=== PATIENT | male | born 1995 | race Hispanic/Latino ===

== ENCOUNTER 2019-01-26 11:35 | Emergency (ER) | payer SELFPAY ==
--- NOTE | 2019-01-26 12:06 | EDPHYS ---
Physician Documentation [facility] Name: Macho Park Age: 23 yrs Sex: Male : 1995 Arrival Date: 01/26/2019 Time: 11:42 Bed 4 Private MD: ED Physician Jeff Abreu HPI: 01/26 11:51 This 23 yrs old Male presents to ER via EMS with complaints of dizziness. rn 11:51 The patient presents with generalized weakness, lightheadedness. Onset: The rn symptoms/episode began/occurred 2 week(s) ago. Context:. Modifying factors: The symptoms are alleviated by lying down, the symptoms are aggravated by standing up, changing position. Associated signs and symptoms: Pertinent negatives: abdominal pain, chest pain, confusion, diaphoresis, head injury, headache, near-syncope, numbness, seizure, shortness of breath, syncope, tingling, vomiting. Severity of symptoms: At their worst the symptoms were mild in the emergency department the symptoms are unchanged. The patient has experienced similar episodes in the past. Reports dizziness and lightheaded for 2-3 weeks, worse when changing position and standing, no focal neurological problem. Has been in [facility] for last 2 days and feels like made it worse. Also reports chronic abscesses and skin problems, nothing acute or acute changes, has been happening for years. Has seen multiple ERs for skin problem with bloodwork and ct of chronic masses, took abx and did nothing. Reports masses not growing or painful. Denies drug use or stimulant use. . Historical: - Allergies: 11:47 No Known Allergies; ca1 - Home Meds: 11:47 None [Active]; ca1 - PMHx: 11:47 None; ca1 - PSHx: 11:47 None; ca1 - Immunization history:: Adult Immunizations up to date. - Social history:: Smoking status: Patient uses tobacco products, smokes one-half pack cigarettes per day. - Ebola Screening: : Patient negative for fever greater than or equal to 101.5 degrees Fahrenheit, and additional compatible Ebola Virus Disease symptoms Patient denies exposure to infectious person Patient denies travel to an Ebola-affected area in the 21 days before illness onset No symptoms or risks identified at this time. - Family history:: not pertinent. - Hospitalizations: : No recent hospitalization is reported. ROS: 11:51 Constitutional: Negative for fever, chills, and weight loss, Eyes: Negative for injury, rn pain, redness, and discharge, Neck: Negative for injury, pain, and swelling, Cardiovascular: Negative for chest pain, and edema, Respiratory: Negative for shortness of breath, cough, wheezing, and pleuritic chest pain, Abdomen/GI: Negative for abdominal pain, nausea, vomiting, diarrhea, and constipation, MS/Extremity: Negative for injury and deformity, Skin: + chronic skin changes and rash Neuro: Negative for headache, weakness, numbness, tingling, and seizure. Exam: 11:51 Constitutional: Thin male, disheveled with strong body odor, no acute distress, rn appears anxious. Head/Face: Normocephalic, atraumatic. Eyes: Pupils equal round and reactive to light, extra-ocular motions intact. Lids and lashes normal. Conjunctiva and sclera are non-icteric and not injected. Cornea within normal limits. ENT: MMM, poor dentition Neck: Trachea midline, no thyromegaly or masses palpated, and no cervical lymphadenopathy. Supple, full range of motion without nuchal rigidity, or vertebral point tenderness. No Meningismus. Cardiovascular: Regular rate and rhythm. No pulse deficits. Respiratory: No increased work of breathing, no retractions or nasal flaring. Speaking full sentences. Skin: Warm, dry, + multiple nodular dermal growths on face/neck/back, no fluctuance, non-tender, + chronic scarring from previoius skin problems throughout. NO erythema or warmth. MS/ Extremity: Pulses equal, no cyanosis. Neurovascular intact. Full, normal range of motion. Equal circumference. Neuro: Awake and alert, GCS 15, oriented to person, place, time, and situation. Cranial nerves II-XII grossly intact. Motor strength 5/5 in all extremities. Sensory grossly intact. Cerebellar exam normal. 12:00 ECG was reviewed by the Attending Physician. rn Vital Signs: 11:47 BP 130 / 79; Pulse 76; Resp 16 S; Temp 97.4(O); Pulse Ox 100% on R/A; Weight 88.45 kg ca1 (R); Height 6 ft. 4 in. (193.04 cm) (R); Pain 0/10; 11:47 Body Mass Index 23.74 (88.45 kg, 193.04 cm) ca1 MDM: 11:44 Patient medically screened. rn 12:00 ED course: Glucose WNL, ECG normal, vitals normal, neg orthostatics. Chronic skin rn changes. Recommend oral hydration and pcp and dermatology f/u. . 12:03 Differential diagnosis: hypovolemia, idiopathic dizziness, staph colonization, poor rn hygeine. Data reviewed: vital signs, nurses notes, EKG, and as a result, I will discharge patient. Counseling: I had a detailed discussion with the patient and/or guardian regarding: the historical points, exam findings, and any diagnostic results supporting the discharge/admit diagnosis, the need for outpatient follow up, to return to the emergency department if symptoms worsen or persist or if there are any questions or concerns that arise at home. Special discussion: I discussed with the patient/guardian in detail that at this point there is no indication for admission to the hospital. It is understood, however, that if the symptoms persist or worsen the patient needs to return immediately for re-evaluation. Based on the history and exam findings, there is no indication for further emergent testing or inpatient evaluation. I discussed with the patient/guardian the need to see the stencil maker for further evaluation of the symptoms. I discussed with the patient/guardian the need to see the primary care provider for further evaluation of the symptoms. ED course: Recommended bathing with antibacterial soap and minimizing skin trauma along with pcp and derm f/u.. 01/26 11:55 Order name: LOVE ca1 01/26 11:45 Order name: EKG; Complete Time: 11:45 rn 01/26 11:45 Order name: EKG - Nurse/Tech; Complete Time: 11:55 rn 01/26 11:45 Order name: Glucose Level; Complete Time: 11:55 rn EC:00 Rate is 64 beats/min. Rhythm is regular. Right axis deviation noted. QRS is positive in rn lead aVF and negative in lead I. CT interval is normal. QRS interval is normal. QT interval is normal. No Q waves. T waves are Normal. No ST changes noted. Clinical impression: NSR w/ Non-specific ST/T Changes. Interpreted by me. Reviewed by me. Administered Medications: No medications were administered Disposition: 01/26/19 12:05 Discharged to Home. Impression: Dizziness and giddiness. - Condition is Stable. - Discharge Instructions: Dizziness. - Medication Reconciliation Form, Thank You Letter, Antibiotic Education, Prescription Opioid Use form. - Follow up: Private Physician; When: As needed; Reason: Recheck today's complaints, Re-evaluation by your physician. - Problem is chronic. - Symptoms are unchanged. Signatures: Dispatcher [employer] EDMS Jeff Abreu MD MD rn Acob, TIFFANY Contreras RN ca1 Corrections: (The following items were deleted from the chart) 12:11 12:05 01/26/2019 12:05 Discharged to Home. Impression: Dizziness and giddiness. ca1 Condition is Stable. Forms are Medication Reconciliation Form, Thank You Letter, Antibiotic Education, Prescription Opioid Use. Follow up: Private Physician; When: As needed; Reason: Recheck today's complaints, Re-evaluation by your physician. Problem is chronic. Symptoms are unchanged. rn
--- NOTE | 2019-01-26 12:06 | ER ---
Nurse's Notes [facility] Name: Macho Park Age: 23 yrs Sex: Male : 1995 Arrival Date: 01/26/2019 Time: 11:42 Bed 4 Private MD: Diagnosis: Dizziness and giddiness Presentation: 01/26 11:46 Presenting complaint: EMS states: pt c/o dizziness on standing. Negative orthostatics. ca1 Transition of care: patient was not received from another setting of care. Onset of symptoms was January 26, 2019. Risk Assessment: Do you want to hurt yourself or someone else? Patient reports no desire to harm self or others. Initial Sepsis Screen: Does the patient meet any 2 criteria? No. Patient's initial sepsis screen is negative. Does the patient have a suspected source of infection? No. Patient's initial sepsis screen is negative. Care prior to arrival: None. 11:46 Method Of Arrival: EMS: [facility] ca1 11:46 Acuity: MELANIE 4 ca1 Historical: - Allergies: 11:47 No Known Allergies; ca1 - Home Meds: 11:47 None [Active]; ca1 - PMHx: 11:47 None; ca1 - PSHx: 11:47 None; ca1 - Immunization history:: Adult Immunizations up to date. - Social history:: Smoking status: Patient uses tobacco products, smokes one-half pack cigarettes per day. - Ebola Screening: : Patient negative for fever greater than or equal to 101.5 degrees Fahrenheit, and additional compatible Ebola Virus Disease symptoms Patient denies exposure to infectious person Patient denies travel to an Ebola-affected area in the 21 days before illness onset No symptoms or risks identified at this time. - Family history:: not pertinent. - Hospitalizations: : No recent hospitalization is reported. Screenin:48 Abuse screen: Denies threats or abuse. Denies injuries from another. Nutritional ca1 screening: No deficits noted. Tuberculosis screening: No symptoms or risk factors identified. Fall Risk None identified. Assessment: 11:48 General: Appears in no apparent distress. unkempt, Behavior is calm, cooperative, ca1 appropriate for age. General:. Pain: Denies pain. Neuro: Level of Consciousness is awake, alert, obeys commands, Oriented to person, place, time, situation, Appropriate for age. Cardiovascular: Heart tones S1 S2 present Capillary refill < 3 seconds Patient's skin is warm and dry. Respiratory: Airway is patent Respiratory effort is even, unlabored, Respiratory pattern is regular, symmetrical, Breath sounds are clear bilaterally. GI: Abdomen is flat, non-distended, Bowel sounds present X 4 quads. Abd is soft and non tender X 4 quads. : No deficits noted. No signs and/or symptoms were reported regarding the genitourinary system. EENT: No deficits noted. No signs and/or symptoms were reported regarding the EENT system. Derm: Skin is healthy with good turgor. Musculoskeletal: Circulation, motion, and sensation intact. Capillary refill < 3 seconds, Range of motion: intact in all extremities. Vital Signs: 11:47 BP 130 / 79; Pulse 76; Resp 16 S; Temp 97.4(O); Pulse Ox 100% on R/A; Weight 88.45 kg ca1 (R); Height 6 ft. 4 in. (193.04 cm) (R); Pain 0/10; 11:47 Body Mass Index 23.74 (88.45 kg, 193.04 cm) ca1 ED Course: 11:42 Patient arrived in ED. sg 11:44 Jeff Abreu MD is Attending Physician. rn 11:46 Diane Nieves RN is Primary Nurse. ca1 11:47 Triage completed. ca1 11:47 Arm band placed on right wrist. ca1 11:48 Patient has correct armband on for positive identification. Bed in low position. Call ca1 light in reach. Side rails up X 1. Pulse ox on. NIBP on. Warm blanket given. 11:48 No provider procedures requiring assistance completed. Patient did not have IV access ca1 during this emergency room visit. 11:56 Warm blanket given. mh5 12:04 EKG done, by transport technician. reviewed by Jeff Abreu MD. at1 Administered Medications: No medications were administered Outcome: 12:05 Discharge ordered by . rn 12:11 Discharged to home ambulatory. ca1 12:11 Condition: stable 12:11 Discharge instructions given to patient, Instructed on discharge instructions, follow up and referral plans. Demonstrated understanding of instructions, follow-up care. 12:11 Patient left the ED. ca1 Signatures: Abad Noyola RN RN sg Nieto, Roman, MD MD rn Gonzales, Amanda, homicide squad captain EKG Tat1 Ammy Bridges 5 Acjohana, Diane, RN RN ca1
[2019-01-26 12:17] VITALS: BP 130/79; TEMP 97.4; O2SAT 100
--- NOTE | 2019-01-26 15:13 | EKG ---
Test Date: 2019-01-26 Test Time: 11:55:48 Front Office Assistant: CLARK MEASUREMENT RESULTS: Intervals: Rate: 64 NC: 156 QRSD: 100 QT: 400 QTc: 412 [place]: P: 61 NC: 156 QRS: 108 T: 74 INTERPRETIVE STATEMENTS: Normal sinus rhythm Rightward axis Borderline ECG No previous ECG available for comparison Electronically Signed On 01-26-19 15:13:28 CDT by Hong Hidalgo
== END 2019-01-26 12:11 | disposition home or self-care (01) ==
LOC: ER 11:35
DX: R42 Dizziness and giddiness (principal); F17.210 Nicotine dependence, cigarettes, uncomplicated
CPT/HCPCS: 36415; 82962; 93005; 99283

== ENCOUNTER 2019-04-13 21:53 | Emergency (ER) | payer SELFPAY ==
--- OUTSIDE RECORDS SUMMARY | 2019-04-13 21:55 | XMS REPORT ---
:1995 [facility] Address [address] [place] [address] [address] [place] [address] Care Team Providers Name Role Phone Unavailable Unavailable Unavailable Problems This patient has no known problems. Allergies, Adverse Reactions, Alerts This patient has no known allergies or adverse reactions. Medications This patient has no known medications.
[2019-04-13] MEDS ORDERED: LIDOCAINE 1% MPF 5 ML VIAL ONE (23:45)
[2019-04-13] MEDS ORDERED: CEPHALEXIN 250 MG CAP ONE (23:45)
[2019-04-13] MEDS ORDERED: SMZ./TMP. 800/160 MG TABLET ONE (23:45)
--- NOTE | 2019-04-14 00:34 | ER ---
Nurse's Notes [facility] Name: Macho Park Age: 23 yrs Sex: Male : 1995 Arrival Date: 04/13/2019 Time: 21:55 Bed 8 Private MD: Diagnosis: Cutaneous abscess of face Presentation: 04/13 22:20 Presenting complaint: Patient states: seen previously for this but it was small and it dm5 has gotten bigger. Pain has gotten worse and I can't eat or put my chin down. Transition of care: patient was not received from another setting of care. Onset of symptoms was April 11, 2019. Risk Assessment: Do you want to hurt yourself or someone else? Patient reports no desire to harm self or others. Initial Sepsis Screen: Does the patient meet any 2 criteria? No. Patient's initial sepsis screen is negative. Does the patient have a suspected source of infection? Yes: Other: abscess. Care prior to arrival: None. 22:20 Method Of Arrival: Ambulatory dm5 22:20 Acuity: MELANIE 3 dm5 Triage Assessment: 22:22 General: Appears in no apparent distress. uncomfortable, Behavior is cooperative, dm5 restless. Pain: Complains of pain in chin and neck Pain currently is 10 out of 10 on a pain scale. Pain began 2-3 days ago. Historical: - Allergies: 22:22 No Known Allergies; dm5 - Home Meds: 22:22 None [Active]; dm5 - PMHx: 22:22 None; dm5 - PSHx: 22:22 None; dm5 - Immunization history:: Adult Immunizations unknown. - Social history:: Smoking status: unknown. - Ebola Screening: : No symptoms or risks identified at this time. Screenin/07 00:47 Abuse screen: Denies threats or abuse. Nutritional screening: No deficits noted. ea Tuberculosis screening: No symptoms or risk factors identified. Fall Risk None identified. Assessment: 00:17 General: Appears in no apparent distress. Behavior is calm, cooperative, appropriate ea for age. Neuro: Level of Consciousness is awake, alert, obeys commands, Oriented to person, place, time, situation. Cardiovascular: Patient's skin is warm and dry. Respiratory: Airway is patent Respiratory effort is even, unlabored, Respiratory pattern is regular, symmetrical. Derm: Skin is pink, warm \T\ dry. 00:45 Reassessment: Patient and/or family updated on plan of care and expected duration. Pain ea level reassessed. Patient is alert, oriented x 3, equal unlabored respirations, skin warm/dry/pink. Discharge instruction given to patient, verbalized the understanding of instruction. Pt left ED ambulatory tolerating well. Vital Signs: 04/13 22:22 BP 125 / 67; Pulse 76; Resp 20; Temp 97(TE); Pulse Ox 99% on R/A; Weight 83.91 kg (R); dm5 Height 6 ft. 3 in. (190.50 cm); Pain 01/15; 04/14 00:45 Temp 98.5; ea 04/13 22:22 Body Mass Index 23.12 (83.91 kg, 190.50 cm) dm5 ED Course: 04/13 21:55 Patient arrived in ED. ds1 22:22 Triage completed. dm5 22:22 Arm band placed on right wrist. dm5 22:24 [facility] kb 22:24 Juno Terry MD is Attending Physician. kb 23:39 Dora Gaines RN is Primary Nurse. lp1 04/14 00:25 Assist provider with I \T\ D: of an abscess on Set up I\T\D tray. Performed by Bette GALLOWAY Culture sent to lab. Dressing with 4X4s, tape Patient tolerated well. 00:30 Patient has correct armband on for positive identification. Bed in low position. Call ea light in reach. 00:45 Patient did not have IV access during this emergency room visit. ea Administered Medications: 00:17 Drug: Lidocaine (1 %) 1 vials Volume: 5 ml; Route: Infiltration; lp1 00:44 Drug: KeFLEX 500 mg Route: PO; ea 00:45 Drug: Bactrim (160 mg-800 mg (DS) 1 tablet Route: PO; ea Outcome: 00:25 Discharge ordered by . kb 00:45 Discharged to home ambulatory. ea 00:45 Condition: stable 00:45 Discharge instructions given to patient, Instructed on discharge instructions, follow up and referral plans. Demonstrated understanding of instructions, follow-up care, medications. 00:49 Patient left the ED. ea Addendum: 04/17/2019 07:32 Addendum: Culture Results: Positive wound culture. No further action required. Bacteria e b sensitive to prescribed antibiotic. Signatures: Bette Marquez, LAVERNE CATTLE SORTER-Norma Burton, RN RN dm5 Hector, Janet ds1 Dora Gaines RN RN lp1 Xochitl Martin RN RN Daisy Infante
--- NOTE | 2019-04-14 00:37 | EDPHYS ---
Physician Documentation [facility] Name: Macho Park Age: 23 yrs Sex: Male : 1995 Arrival Date: 04/13/2019 Time: 21:55 Bed 8 Private MD: ED Physician Juno Terry HPI: 04/14 00:33 This 23 yrs old Male presents to ER via Ambulatory with complaints of Boil On kb Chin. 00:33 The patient presents with an abscess of the chin. Description: erythematous, fluctuant, kb swollen, warm. Onset: The symptoms/episode began/occurred 1 month(s) ago. Possible cause(s): unknown. Associated signs and symptoms: Pertinent positives: erythema, swelling. Modifying factors: the symptoms are alleviated by nothing, the symptoms are aggravated by pressure, squeezing the lesion and expressing the contents, touching. Severity of symptoms: At their worst the symptoms were moderate, in the emergency department the symptoms are unchanged. The patient has not experienced similar symptoms in the past. The patient has not recently seen a physician. Historical: - Allergies: 04/13 22:22 No Known Allergies; dm5 - Home Meds: 22:22 None [Active]; dm5 - PMHx: 22:22 None; dm5 - PSHx: 22:22 None; dm5 - Immunization history:: Adult Immunizations unknown. - Social history:: Smoking status: unknown. - Ebola Screening: : No symptoms or risks identified at this time. ROS: 04/14 00:31 Constitutional: Negative for fever, chills, and weight loss, Neck: Negative for injury, kb pain, and swelling, Cardiovascular: Negative for chest pain, palpitations, and edema, Respiratory: Negative for shortness of breath, cough, wheezing, and pleuritic chest pain, Abdomen/GI: Negative for abdominal pain, nausea, vomiting, diarrhea, and constipation, Back: Negative for injury and pain, MS/Extremity: Negative for injury and deformity, Neuro: Negative for headache, weakness, numbness, tingling, and seizure. Skin: Positive for abscess, of the chin. Exam: 00:31 Constitutional: This is a well developed, well nourished patient who is awake, alert, kb and in no acute distress. Head/Face: Normocephalic, atraumatic. Neck: Trachea midline, no thyromegaly or masses palpated, and no cervical lymphadenopathy. Supple, full range of motion without nuchal rigidity, or vertebral point tenderness. No Meningismus. Chest/axilla: Normal chest wall appearance and motion. Nontender with no deformity. No lesions are appreciated. Cardiovascular: Regular rate and rhythm with a normal S1 and S2. No gallops, murmurs, or rubs. Normal PMI, no JVD. No pulse deficits. Respiratory: Lungs have equal breath sounds bilaterally, clear to auscultation and percussion. No rales, rhonchi or wheezes noted. No increased work of breathing, no retractions or nasal flaring. Abdomen/GI: Soft, non-tender, with normal bowel sounds. No distension or tympany. No guarding or rebound. No evidence of tenderness throughout. MS/ Extremity: Pulses equal, no cyanosis. Neurovascular intact. Full, normal range of motion. Neuro: Awake and alert, GCS 15, oriented to person, place, time, and situation. Cranial nerves II-XII grossly intact. Motor strength 5/5 in all extremities. Sensory grossly intact. Cerebellar exam normal. Normal gait. 00:31 Skin: abscess, that is moderate sized, of the chin, with fluctuance. Vital Signs: 04/13 22:22 BP 125 / 67; Pulse 76; Resp 20; Temp 97(TE); Pulse Ox 99% on R/A; Weight 83.91 kg (R); dm5 Height 6 ft. 3 in. (190.50 cm); Pain 10/10; 04/14 00:45 Temp 98.5; ea 04/13 22:22 Body Mass Index 23.12 (83.91 kg, 190.50 cm) dm5 Procedures: 00:23 I \T\ D: Incision and drainage was performed for an abscess of the chin Prepped with kb Betadine, Anesthetized with 1 ml's 1% Lidocaine. Incised with #11 blade. Drained large amount purulent fluid. Loculations removed. Cultures obtained. Dressing: the patient tolerated the procedure well. MDM: 04/13 22:24 Patient medically screened. kb 04/14 00:23 Data reviewed: vital signs, nurses notes. Data interpreted: Pulse oximetry: on room air kb is 99 %. Interpretation: normal. Counseling: I had a detailed discussion with the patient and/or guardian regarding: the historical points, exam findings, and any diagnostic results supporting the discharge/admit diagnosis, the need for outpatient follow up, a general surgeon, to return to the emergency department if symptoms worsen or persist or if there are any questions or concerns that arise at home. 04/14 00:17 Order name: Wound Culture lp1 04/13 22:46 Order name: I\T\D Setup; Complete Time: 00:45 kb Administered Medications: 00:17 Drug: Lidocaine (1 %) 1 vials Volume: 5 ml; Route: Infiltration; lp1 00:44 Drug: KeFLEX 500 mg Route: PO; ea 00:45 Drug: Bactrim (160 mg-800 mg (DS) 1 tablet Route: PO; ea Disposition: 06:58 Co-signature as Attending Physician, Juno Terry MD I agree with the assessment and lia plan of care. Disposition: 04/14/19 00:25 Discharged to Home. Impression: Cutaneous abscess of face. - Condition is Stable. - Discharge Instructions: Skin Abscess, [id number], Incision and Drainage, Care After. - Prescriptions for Keflex 500 mg Oral Capsule - take 1 capsule by ORAL route every 8 hours for 10 days; 30 capsule. Bactrim DS 800- 160 mg Oral Tablet - take 1 tablet by ORAL route every 12 hours for 10 days; 20 tablet. - Medication Reconciliation Form, Thank You Letter, Antibiotic Education, Prescription Opioid Use form. - Follow up: Emergency Department; When: As needed; Reason: Worsening of condition. Follow up: Private Physician; When: 2 - 3 days; Reason: Recheck today's complaints, Continuance of care, Re-evaluation by your physician. Signatures: Dispatcher [employer] Bette Rodriguez, WILLIE-C ABLE BODIED WATCHMAN-Norma Burton, RN RN Juno Stewart MD MD cha Pena, Laura, RN RN Xochitl Lock RN RN ea Corrections: (The following items were deleted from the chart) 00:24 00:23 Counseling: I had a detailed discussion with the patient and/or guardian eduarda regarding: the historical points, exam findings, and any diagnostic results supporting the discharge/admit diagnosis, the need for outpatient follow up, a family practitioner, to return to the emergency department if symptoms worsen or persist or if there are any questions or concerns that arise at home, eduarda 00:33 00:31 Skin: abscess, that is moderate sized, of the chin, with fluctuance, kb eduarda 00:49 00:25 04/14/2019 00:25 Discharged to Home. Impression: Cutaneous abscess of face. ea Condition is Stable. Forms are Medication Reconciliation Form, Thank You Letter, Antibiotic Education, Prescription Opioid Use. Follow up: Emergency Department; When: As needed; Reason: Worsening of condition. Follow up: Private Physician; When: 2 - 3 days; Reason: Recheck today's complaints, Continuance of care, Re-evaluation by your physician. kb
[2019-04-14 00:55] VITALS: BP 125/67; O2SAT 99
[2019-04-14 00:56] VITALS: TEMP 98.5
== END 2019-04-14 00:49 | disposition home or self-care (01) ==
LOC: ER 21:53
PROC: 0J910ZZ Drainage of Face Subcutaneous Tissue and Fascia, Open Approach (ICD-10-PCS; principal; 2019-04-14)
DX: L02.01 Cutaneous abscess of face (principal)
CPT/HCPCS: 87070; 87077; 87186; 87205; 99283

== ENCOUNTER 2021-10-31 23:37 | Emergency (ER) | payer SELFPAY ==
--- OUTSIDE RECORDS SUMMARY | 2021-10-31 23:41 | XMS REPORT | Continuity of Care Document ---
:1995 Author Organization [facility] t Address [address] [place] [address] Care Team Providers Name Role Phone Td DIAMOND Primary Care Physician Noe RN, E Attending Clinician Sergio ALMONTE Attending Clinician MARCUS JOSEPH Attending Clinician Unavailable Singer VILLALPANDO Attending Clinician Marcus Joseph MD Attending Clinician Doctor Unassigned, Name Attending Clinician Unavailable Perri TAPIA F Attending Clinician MARCUS JOSEPH Admitting Clinician Unavailable Marcus Joseph MD Admitting Clinician Problems Condition Condition Condition Status Onset Resolution Last Treating Co mments Source Name Details Category Date Date Treatment Clinician Date 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 00:00: [place] of face of face [address] [place] [address] No known No known Disease Unive rs active active ity of problems problems [facility] Allergies, Adverse Reactions, Alerts Allergy Allergy Status Severity Reaction(s) Onset Inactive Treating Comm ents Source Name Type Date Date Clinician NO KNOWN Drug Active Univers ALLERGIE Class ity of S [facility] Social History Social Habit Start Date Stop Date Quantity Comments Source History of tobacco Cigarette Smoker [facility] use [facility] Branch History SDOH University o f Alcohol Frequency [facility] edical History SDNE University o f Alcohol Std Drinks [place] [facility] History [facility] University o f Alcohol Binge [place] [facility] Alcohol intake 2021-08-14 2021-08-14 Current drinker Unive rsity of 00:00:00 00:00:00 of alcohol [place] [facility] (finding) Branch Exposure to 2021-07-30 2021-08-09 Not sure University SARS-CoV-2 (event) 00:00:00 14:05:00 [facility] Branch Cigarettes smoked 2021-08-09 2021-08-09 Univers ity of current (pack per 00:00:00 00:00:00 [facility]) - Reported Branch Cigarette 2021-08-09 2021-08-09 University of pack-years 00:00:00 00:00:00 [facility] Tobacco use and 2021-08-09 2021-08-09 Never used Universit y of exposure 00:00:00 00:00:00 [facility] Alcohol Comment 2021-08-09 2021-08-09 occasional Universit y of 00:00:00 00:00:00 [facility] Sex [birth year] Universit y of 00:00:00 00:00:00 [facility] Smoking Status Start Date Stop Date Source [facility] Current every day smoker 2021-08-09 00:00:00 Uni versity of [facility] Medications Ordered Filled Start Stop Current Ordering Indication Dosage Frequency Signature Comments Components Source Medication Medication Date Date Medication? Clinician (SIG) Name Name magnesium 2021- 4g 4 g, IV Univ ers sulfate in 08-11 Piggyback, it y of water 4 13:00: 15:35 ONCE, 1 [place] gram/50 mL 00 :00 dose, On Medic al (8 %) IV Fri 08/11/21 Branc h Piggyback 4 at 0800, g Routine acetaminoph Yes 650mg Take 2 Uni vers en 325 mg 08-11 tablets by ity of tablet 00:00: mouth [place] 00 every 6 Medical (six) Branch hours as needed for Pain (scale 1-3) or Pain (scale 4-6). doxycycline 2022-0 Yes [id number] 100mg Take 1 Univers hyclate 100 5-06 capsule by it y of mg capsule 00:00: mouth [place] 00 every 12 Medical (twelve) Branch hours. acetaminoph 2021-0 Yes 650mg Take 2 Uni vers en 325 mg 5-06 tablets by ity of tablet 00:00: mouth [place] 00 every 6 Medical (six) Branch hours as needed for Pain (scale 1-3) or Pain (scale 4-6). doxycycline 2021-0 Yes [id number] 100mg Take 1 Univers hyclate 100 5-06 capsule by it y of mg capsule 00:00: mouth [place] 00 every 12 Medical (twelve) Branch hours. acetaminoph 2021-0 Yes 650mg Take 2 Uni vers en 325 mg 5-06 tablets by ity of tablet 00:00: mouth [place] 00 every 6 Medical (six) Branch hours as needed for Pain (scale 1-3) or Pain (scale 4-6). doxycycline 2021-0 Yes [id number] 100mg Take 1 Univers hyclate 100 5-06 capsule by it y of mg capsule 00:00: mouth [place] 00 every 12 Medical (twelve) Branch hours. acetaminoph 2021-0 Yes 650mg Take 2 Uni vers en 325 mg 5-06 tablets by ity of tablet 00:00: mouth [place] 00 every 6 Medical (six) Branch hours as needed for Pain (scale 1-3) or Pain (scale 4-6). doxycycline 2021-0 Yes [id number] 100mg Take 1 Univers hyclate 100 5-06 capsule by it y of mg capsule 00:00: mouth [place] 00 every 12 Medical (twelve) Branch hours. acetaminoph 2021-0 Yes 650mg Take 2 Uni vers en 325 mg 5-06 tablets by ity of tablet 00:00: mouth [place] 00 every 6 Medical (six) Branch hours as needed for Pain (scale 1-3) or Pain (scale 4-6). doxycycline 2021-0 Yes [id number] 100mg Take 1 Univers hyclate 100 5-06 capsule by it y of mg capsule 00:00: mouth [place] 00 every 12 Medical (twelve) Branch hours. doxycycline 2021-0 2022- No [id number] 100mg Take 1 Univers hyclate 100 5-06 05-06 capsule by i ty of mg capsule 00:00: 00:00 mouth [place] 00 :00 every 12 Medical (twelve) Branch hours for 7 days. doxycycline 2021- No [id number] 100mg Take 1 Univers hyclate 100 08-11 capsule by i ty of mg capsule 00:00: 00:00 mouth [place] 00 :00 every 12 Medical (twelve) Branch hours for 13 days. doxycycline 2021- No [id number] 100mg Take 1 Univers hyclate 100 08-11 capsule by i ty of mg capsule 00:00: 00:00 mouth [place] 00 :00 every 12 Medical (twelve) Branch hours for 14 days. vancomycin 2021- Yes 15mg/kg 1,500 mg Univers (VANCOCIN) 08-10 (rounded ity of 1,500 mg in 21:45: 21:44 from [place] NaCl 0.9% 00 :00 1,429.5 mg Medi alon (NS) 500 mL = 15 mg/kg Br anch VIAL-MATE ?95.3 kg), IV IV piggyback Piggyback, Q12H ABX, 10 doses, First dose on Mel 08/10/21 at 1645, Last dose on Sat08/15/21 at 0445, Administer over 90 Minutes, 500 mL
Reas on for Anti-Infec tive: Documented Infection< br>Documen naseem Infection Site: Skin / Soft Tissue
Duration of Therapy: 7 days enoxaparin Yes 40mg 40 mg, Unive rs (LOVENOX) 08-10 Subcutaneo ity of injection 14:00: [place] 00 First dose Medical on Mel08/10/21 at 0900, Until Discontinu ed, Routine acetaminoph Yes 650mg 650 mg, Un luanne en 08-10 Oral, ity of (TYLENOL) 13:01: Q6HPRN, [place] tablet 650 00 Starting Medic al mg on Mel Branch 08/10/21 at 0801, Until Discontinu ed, Routine, Pain (scale 1-3), Pain (scale 4-6) HYDROcodone 2021- Yes 1{tbl} 1 tablet, Univers -acetaminop 08-10 05-07 Oral, ity of hen (NORCO 13:00: 01:36 Q6HPRN, [place] as 5) 5-325 mg 55 :17 Starting Medi alon tablet 1 on Sat tablet 08/10/21 at 0800, Until Sat08/11/21 at 203, Routine, Pain (scale 7-10) ampicillin- Yes 3g 3 g, IV Uni vers sulbactam 5-05 Piggyback, ity of (UNASYN) 3 09:45: Q6H ABX, [place] as g in NaCl 00 First dose Medi alon 0.9% (NS) on Sat Branch 100 mL 08/10/21 at MINI-BAG 0445, Until Discontinu ed, Administer over 30 Minutes, 100 mL
Reas on for Anti-Infec tive: Documented Infection< br>Documen naseem Infection Site: Skin / Soft Tissue
Duration of Therapy: 7 days doxycycline 2021- No 100mg 100 mg, U nivers hyclate 08-10 05-06 Oral, ity of (Vibramycin 03:15: 11:47 [place]12HA2, [place] capsule 00 :48 First dose Medi alon 100 mg on Sat08/09/21 at 2215, Until Discontinu ed, DAVID
Re ason for Anti-Infec tive: Documented Infection< br>Documen naseem Infection Site: Skin / Soft Tissue
Duration of Therapy: 7 days FENTanyl PF 2021- No 25ug 25 mcg, Un luanne (SUBLIMAZE 08-10 05-05 Slow IV ity o f (PF)) 03:12: 03:20 Push, [place] injection 00 :00 ONCE, 1 Medical 25 mcg dose, On Branch Sat08/09/21 at 2215, Routine FENTanyl PF 2021- No 25ug 25 mcg, Un luanne (SUBLIMAZE 5-05 05-05 Slow IV ity o f (PF)) 02:19: 02:59 Push, [place] injection 00 :00 Q15MIN, 2 Medic al 25 mcg doses, Branch First dose on Sat08/09/21 at 2130, Last dose on Sat08/09/21 at 2145, Routine ketorolac 2021- No 15mg 15 mg, Unive rs (TORADOL) 5-04 05-04 Slow IV ity of injection 19:30: 18:39 Push, [place] 15 mg 00 :00 ONCE, 1 Medical dose, On Branch Sat08/09/21 at 1430, DAVID cefTRIAXone 2021- No 1000mg 1,000 mg, Univers (ROCEPHIN) 08-09 IV ity of 1,000 mg in 19:30: 19:07 Piggyback, [place] NaCl 0.9% 00 :00 ONCE, 1 Medical (NS) 50 mL dose, On Branc h MINI-BAG 08/09/21 at 1430, Administer over 30 Minutes, 50 mL
R fabian for Anti-Infec tive: Empiric Therapy for Suspected Infection< br>Empiric Therapy Site: Skin / Soft tissue
Duration of therapy: 72 hours dexamethaso 2021- No 10mg 10 mg, Uni vers ne sod phos 08-09 Slow IV ity of PF 19:30: 19:30 Push, [place] injection 00 :00 ONCE, 1 Medical 10 mg dose, On Branch 08/09/21 at 1430, 1 mL iopamidol 2021- No [id number] 80mL 80 mL, Univers (ISOVUE 08-09 Intravenou ity o f 370-500 mL) 18:47: 18:47 s, ONCE, 1 [place] injection 00 :00 dose, On Medica l 80 mL Sat08/09/21 Branch at 1400, Routine ketorolac 2018- No 30mg 30 mg, Unive rs (TORADOL) 12-16 Slow IV ity of injection 00:15: 00:32 Push, [place] 30 mg 00 :00 ONCE, 1 Medical dose, Mon Branch 12/15/18 at 1915, Routine
swat team member approving Restricted medication : ADRIANE TOURE acetaminoph 2019- No 1000mg 1,000 mg, Univers en 12-16 Oral, ity of (TYLENOL) 00:15: 00:32 ONCE, 1 [place] tablet 00 :00 dose, Mon Medical 1,000 mg 12/15/18 at Branch 1915, Routine naproxen Yes [id number] 500mg Take 1 Un luanne 500 mg tablet by ity of tablet 00:00: mouth [place] 00 every 8 Medical (eight) Branch hours as needed for Pain (scale 4-6). naproxen Yes [id number] 500mg Take 1 Un luanne 500 mg 9- tablet by ity of tablet 00:00: mouth [place] 00 every 8 Medical (eight) Branch hours as needed for Pain (scale 4-6). naproxen 2021- No [id number] 500mg Take 1 U nivers 500 mg 12-15-04 tablet by ity of tablet 00:00: 00:00 mouth [place] 00 :00 every 8 Medical (eight) Branch hours as needed for Pain (scale 4-6). cyclobenzap 2018- No [id number] 5mg Take 1 Univers rine 5 mg 12-15-15 tablet by ity of tablet 00:00: 04:59 mouth 3 [place] 00 :00 (three) Medical times Branch daily for 5 days. sulfamethox Yes [id number] 1{tbl} Take 1 Univers azole-trime 6-22 tablet by ity of thoprim 00:00: mouth [place] 800-160 mg 00 every 12 Medic al per tablet (twelve) Branc h hours. sulfamethox Yes [id number] 1{tbl} Take 1 Univers azole-trime 6-22 tablet by ity of thoprim 00:00: mouth [place] 800-160 mg 00 every 12 Medic al per tablet (twelve) Branc h hours. sulfamethox 2021- No [id number] 1{tbl} Take 1 Univers azole-trime 6-22 05-04 tablet by it y of thoprim 00:00: 00:00 mouth [place] 800-160 mg 00 :00 every 12 Medic al per tablet (twelve) Branc h hours. Vital Signs Vital Name Observation Time Observation Value Comments Source Systolic blood 2021-08-11 20:57:00 141 mm[Hg] Univer sity [facility] Diastolic blood 2021-08-11 20:57:00 75 [facility]Hg[facility] 2021-08-11 20:57:00 71 /min Universi ty [facility] Body temperature 2021-08-11 20:57:00 36.5 [facility] Respiratory rate 2021-08-11 20:57:00 18 /min [facility] Oxygen saturation in 2021-08-11 20:57:00 99 /min University of Arterial blood by [facility] Pulse oximetry Branch Body height 2021-08-10 13:59:00 190.5 cm Universi ty of [facility] Body weight 2021-08-10 13:59:00 95.255 kg Universi ty of [facility] BMI 2021-08-10 13:59:00 26.25 kg/m2 Universi ty of [facility] Body temperature 2018-12-16 00:40:00 37.11 Rosana [facility] Respiratory rate 2018-12-15 23:29:28 16 /min [facility] Body height 2018-12-15 23:04:00 188 cm Universi ty of [facility] Body weight 2018-12-15 23:04:00 86.183 kg Universi ty [facility] BMI 2018-12-15 23:04:00 24.39 kg/m2 Universi ty [facility] Oxygen saturation in 2018-12-15 23:04:00 97 /min University of Arterial blood by [facility] Pulse oximetry Branch Systolic blood 2018-12-15 23:04:00 140 mm[Hg] [facility] Diastolic blood 2018-12-15 23:04:00 67 mm[Hg] [facility] Heart rate 2018-12-15 23:04:00 78 /min Universi ty [facility] Procedures Procedure Date / Time Performed Performing Clinician Sourc e MAGNESIUM 2021-08-11 10:45:00 Juan Ann [place] o f [facility] BASIC METABOLIC PANEL 2021-08-11 10:45:00 Juan Ann [facility] (NA, K, CL, CO2, Medical Branch GLUCOSE, BUN, CREATININE, [place]) CBC WITHOUT DIFF 2021-08-11 10:45:00 Juan Ann [facility] BLOOD CULTURE SCREEN 2021-08-10 06:23:00 Kimmie Cox [facility] MRSA / MSSA SCREEN BY 2021-08-10 06:23:00 Kimmie Cox [facility] PCR, NARES Medical Branch BLOOD CULTURE SCREEN 2021-08-10 06:22:00 Kimmie Cox [facility] TISSUE 2021-08-10 02:33:00 Brooke [facility] CULTURE(AEROBIC/ANAER Medical Br anch OBIC) CT ORBITS W CONTRAST 2021-08-09 18:56:48 Singer Chapin [facility] COMP. METABOLIC PANEL 2021-08-09 18:27:00 Singer [facility] ([id number]) Medical [place] CBC WITH DIFF 2021-08-09 18:27:00 [facility] o [facility] NOTICE OF PRIVACY 2021-08-09 17:14:37 Doctor Unassigned, No [facility] Medical [place] CONSENT/REFUSAL FOR 2021-08-09 17:13:35 [facility] T[facility] HOSP[facility] ADMISSION 2021-08-09 05:01:00 Doctor Unassigned, No Uni versity of [place] Name [facility] CT CERVICAL SPINE WO 2018-12-15 23:43:50 Adriane Toure Uni versity of [facility] CT HEAD WO CONTRAST 2018-12-15 23:43:50 Adriane Toure [facility] 2018-12-15 23:43:29 Adriane Toure [facility] MAXILLOFACIAL/MANDIBL Medical Br anch E WO CONTRAST Encounters Start End Encounter Admission Attending Care Care Encounter Source Date/Time Date/Time Type Type Clinicians Facility Department ID 2021-09-18 2021-09-18 Patient Jade Liu JUAQUIN [id number] Univers 00:00:00 00:00:00 Outreach E GREGG [id number] i ty of [place] 4.2.7.2.686 Rory s [id number] [facility] 403 Branch 2021-08-14 2021-08-14 Transition SergioJUAQUIN [id number] Univers 00:00:00 00:00:00 of Care Kimberly MOODY [id number] [place]y [place] [phone] [facility] 403 Branch 2021-08-14 2021-08-14 Patient Jade Liu [id number] Univers 00:00:00 00:00:00 Outreach E ESCOBED[place] 350.1.13.10 i [place] [id number] [facility] 403 Branch 2021-08-14 2021-08-14 Transition JUAQUIN [place] [id number] Univers 00:00:00 00:00:00 of Care Kimberly ESCOBED[place] 350.1.13.10 [place] [id number] [facility] 403 [place] 2021-08-09 2021-08-11 Inpatient X JAKE [facility] [id number] Univers 12:29:00 16:24:00 RAMON loo [facility] 2021-08-09 2021-08-11 Hospital Chapin Wheeler [id number] Univers 12:29:00 16:24:00 Encounter Ramon Joseph [facility] [place] 350.1. 13.10 ity of [facility] 4.2.7.2.686 [place] [id number] [place] [id number] [place] 2021-08-09 2021-08-09 Orders Doctor EVANGELISTA [id number] Univers 00:00:00 00:00:00 Only Unassigned, [place] 350.1.13.10 ity of [place] [facility] 4.2.7.2.686 Jude as [id number] [facility] 009 Branch 2018-12-15 2018-12-15 Emergency Perri [facility] 1.2.840.114 [id number] Univers 17:57:48 19:54:00 Adriane Ordonez 350.1.13.10 ity of [place] 4[place].2.686 [place] [id number] [address] Results Test Description Test Time Test Comments Results Result Comments Source BASIC METABOLIC PANEL (NA, K, CL, CO2, GLUCOSE, BUN, 2021-08 11:42:36 CREATININE, [place]) Test Item Value Reference Range Interpretation Comme nts NA (test code = 2606920516) 140 mmol/L 135-145 K (test code = 2445803467) 3.5 mmol/L 3.5-5.0 CL (test code = 9962250613) 108 mmol/L 98-108 CO2 TOTAL (test code = 4865541183) 26 mmol/L 23-31 AGAP (test code = 5278450754) 2-16 BUN (test code = 3399077279) 12 mg/dL 7-23 GLUCOSE (test code = 2906814359) 92 mg/dL 70-110 CREATININE (test code = 0.80 mg/dL 0.60-1.25 9595948068) CALCIUM (test code = 5772843129) 8.0 mg/dL 8.6-10.6 L eGFR (test code = 2073537981) mL/min/1.73m2 GENE (test code = GENE) Association of Glomerular Filtration Rate (GFR) and Staging of Kidney Disease* + +-------- + ------+| GFR (mL/min/1.73 m2) ?| With Kidney Damage ?| ?Without Kidney Damage+ +-- + +| ?>90 ?| ?Stage one ?| ? Normal ?+ +------- + -------+| ?60-89 ?| ?Stage two ?| ? Decreased GFR ? + +-------- + ------+| ?30-59 ?| ?Stage three ?| ? Stage three ? + +-------- + ------+| ?15-29 ?| ?Stage four ? | ? Stage four ?+ +------- + -------+| ?<15 (or dialysis) ? ?| ?Stage five ? | ? Stage five ?+ +------- + -------+ *Each stage assumes the associated GFR level has been in effect for at least three months. ?Stages 1 to 5, with or without kidney disease, indicate chronic kidney disease. Notes: Determination of stages one and two (with eGFR >59mL/min/1.73 m2) requires estimation of kidney damage for at least three months as defined by structural or functional abnormalities of the kidney, manifested by either:Pathological abnormalities or Markers of kidney damage (including abnormalities in the composition of the blood or urine or abnormalities in imaging tests). Lab Interpretation (test code = Abnormal 25643-7) [facility]36 Test Item Value Reference Range Interpretation Comments MAGNESIUM (test code = 0429717744) 1.6 mg/dL 1.7-2.4 L Lab Interpretation (test code = Abnormal 39870-3) [facility] [id number] 11:18:07 Test Item Value Reference Range Interpretation Comments WBC (test code = 6690-2) See_Comment [A utomated message] The system [employer] generated this result transmit naseem reference range : 4.20 - 10.70 10*3/?L. The reference range was not used to interpret this result as normal/abnormal . RBC (test code = 789-8) See_Comment [Au tomated message] The system [employer] generated this result transmit naseem reference range : 4.26 - 5.52 10* 6/?L. The reference r zeinab was not used to interpret this result as normal/abnormal . HGB (test code = 718-7) 13.5 g/dL 12.2-16.4 HCT (test code = 4544-3) 40.7 % 38.4-49.3 MCH (test code = 785-6) 31.1 pg 26.1-32.7 MCV (test code = 787-2) 93.8 fL 81.7-95.6 MCHC (test code = 786-4) 33.2 g/dL 31.2-35.0 PLT (test code = 777-3) See_Comment [Au tomated message] The system [employer] generated this result transmit naseem reference range : 150 - 328 10*3/?L. The reference range was not used to interpret this result as normal/abnormal . MPV (test code = 9.2 fL 9.8-13.0 L 25147-4) RDW-CV (test code = 12.3 % 12.1-15.4 788-0) RDW-SD (test code = 42.7 fL 38.5-51.6 71341-8) NRBC x10^3 (test code = <0.01 See_Comment [Au tomated message] 8155648984) The system drumbi h generated this result transmit naseem reference range : 10*3/?L. The reference range was not used to interpret this result as normal/abnormal . NRBC/100 WBC (test code See_Comment [Au tomated message] = 0965990315) The system [employer] generated this result transmit naseem reference range : 0.0 - 10.0 /100 WBC s. The reference r zeinab was not used to interpret this result as normal/abnormal . IPF % (test code = 6359858401) Lab Interpretation (test Abnormal code = 55429-3) [facility]. METABOLIC PANEL (47343)2021-08-09 18:54:10 Test Item Value Reference Range Interpretation Comments NA (test code = 139 mmol/L 135-145 9060345877) K (test code = 4.2 mmol/L 3.5-5.0 9155485927) CL (test code = 104 mmol/L 98-108 0271829101) CO2 TOTAL (test code 26 mmol/L 23-31 = 7346610128) AGAP (test code = 2-16 8936258100) BUN (test code = 12 mg/dL 7-23 4467711921) GLUCOSE (test code = 75 mg/dL 70-110 4822209731) CREATININE (test code 0.81 mg/dL 0.60-1.25 = 7129231954) TOTAL BILI (test code 0.7 mg/dL 0.1-1.1 = 9320498244) CALCIUM (test code = 9.3 mg/dL 8.6-10.6 1356680072) T PROTEIN (test code 7.2 g/dL 6.3-8.2 = 7488830595) ALBUMIN (test code = 4.4 g/dL 3.5-5.0 6005365545) ALK PHOS (test code = 34 U/L 34-122 6813924082) ALTv (test code = 15 U/L 5-50 1742-6) AST(SGOT) (test code 38 U/L 13-40 = 6885809487) eGFR (test code = mL/min/1.73m2 5506623468) GENE (test code = GENE) Association of Glomerular Filtration Rate (GFR) and Staging of Kidney Disease* + + +- +| GFR (mL/min/1.73 m2) ?| With Kidney Damage ?| ?Without Kidney Damage+ ------+ ----+ ------+| ?>90 ?| ?Stage one ?| ? Normal ?+ -+ + -+| ?60-89 ?| ?Stage two ?| ? Decreased GFR ? + + +- +| ?30-59 ?| ?Stage three ?| ? Stage three ? + + +- +| ?15-29 ?| ?Stage four ? | ? Stage four ?+ -+ + -+| ?<15 (or dialysis) ? ?| ?Stage five ? | ? Stage five ?+ -+ + -+ *Each stage assumes the associated GFR level has been in effect for at least three months. ?Stages 1 to 5, with or without kidney disease, indicate chronic kidney disease. Notes: Determination of stages one and two (with eGFR >59mL/min/1.73 m2) requires estimation of kidney damage for at least three months as defined by structural or functional abnormalities of the kidney, manifested by either:Pathological abnormalities or Markers of kidney damage (including abnormalities in the composition of the blood or urine or abnormalities in imaging tests). [facility] WITH [id number] 18:42:29 Test Item Value Reference Range Interpretation Comments WBC (test code = See_Comment [Automated 5389-2) message] The sy stem which generated this result transmitted reference range : 4.20 - 10.70 10*3/?L. The reference range was not used to interpret this result as normal/abnormal . RBC (test code = See_Comment [Automated 536-8) message] The sy stem which generated this result transmitted reference range : 4.26 - 5.52 10*6/?L. The reference range was not used to interpret this result as normal/abnormal . HGB (test code = 15.0 g/dL 12.2-16.4 718-7) HCT (test code = 44.4 % 38.4-49.3 4544-3) MCV (test code = 92.7 fL 81.7-95.6 787-2) MCH (test code = 31.3 pg 26.1-32.7 785-6) MCHC (test code = 33.8 g/dL 31.2-35.0 786-4) RDW-SD (test code = 41.5 fL 38.5-51.6 35563-0) RDW-CV (test code = 12.0 % 12.1-15.4 L 788-0) PLT (test code = See_Comment H [Automated 777-3) message] The sy stem which generated this result transmitted reference range : 150 - 328 10*3/ ?L. The reference r zeinab was not used to interpret this result as normal/abnormal . MPV (test code = 8.6 fL 9.8-13.0 L 99494-2) NRBC/100 WBC (test See_Comment [Automat ed code = 7007895510) message] The system which generated this result transmitted reference range : 0.0 - 10.0 /100 WBCs. The refer ence range was not u sed to interpret th is result as normal/abnormal . NRBC x10^3 (test code <0.01 See_Comment [Auto mated = 1127445647) message] The s ystem which generated this result transmitted reference range : 10*3/?L. The reference range was not used to interpret this result as normal/abnormal . GRAN MAT (NEUT) % 59.9 % (test code = 770-8) IMM GRAN % (test code 0.50 % = 1768677979) LYMPH % (test code = 22.3 % 736-9) MONO % (test code = 13.4 % 5905-5) EOS % (test code = 3.5 % 713-8) BASO % (test code = 0.4 % 706-2) GRAN MAT x10^3(ANC) 4.83 10*3/uL 1.99-6.95 (test code = 9262979957) IMM GRAN x10^3 (test 0.04 10*3/uL 0.00-0.06 code = 7542146677) LYMPH x10^3 (test code 1.80 10*3/uL 1.09-3.23 = 731-0) MONO x10^3 (test code 1.08 10*3/uL 0.36-1.02 H = 742-7) EOS x10^3 (test code = 0.28 10*3/uL 0.06-0.53 711-2) BASO x10^3 (test code 0.03 10*3/uL 0.01-0.09 = 704-7) Lab Interpretation Abnormal (test code = 73632-0) [facility]AST 2018-12-15 23:58:08 No acute intracranial abnormality Scattered small radiodense foreign bodies are seen in the right facial softtissues including within the right medial canthal region and abutting thesclera of the right globe. The globes appear intact and no retrobulbar areforeign bodies are identified. No acute facial fractures. No acute cervical fracture or traumatic malalignment* * * * * * * * ORIGINAL REPORT * * * * * * * *CT HEAD WO CONTRAST,CT MAXILLOFACIAL/MANDIBLE WO CONTRAST,CT CERVICAL SPINE WO CONTRAST HISTORY: Male 23 years Head trauma, minor, GCS>=13, high clinical risk,initial exam Head trauma, headache COMPARISON: None TECHNIQUE: Routine CT head, CT maxilla-facial and CT cervical spine wereobtained without IV contrast FINDINGS: CT head and face: The ventricles and cerebral sulci are normal in caliber and configuration.No hydrocephalus, midline shift or pathological extra-axial fluidcollection is present. The basal cisterns are unremarkable. A small midlineretrocerebellar arachnoid cyst is incidentally noted. No acute intracranial hemorrhage or mass effect is present. The centeno-whitematter diff erentiation is intact. No parenchymal attenuation abnormality ispresent. The calvarium and skull base are unremarkable. The mastoid air cells and paranasal air sinuses are essentially clear withno morethan minimal mucoperiosteal thickening seen in the maxillarysinuses. Scattered small radiodense foreign bodies are noted within the faceincluding within the right supraorbital soft tissues abutting theanteriormargin of the right globe, in the right medial canthal region and along theleft aspect of the nose and nasolabial fold. No acute facial fracture is present. The globes appear intact. No retrobulbar foreign body is present. CT cervical spine: Reversal of the normal cervical lordosis. The vertebral bodies are normalin height and in normal alignment. No facet fracture or subluxation ispresent. The craniocervical junction is intact. The prevertebral softtissues are unremarkable. No significant degenerative changes are present. [facility], Radiant Results Inft User - 12/15/2018 6:58 PM CDT* * * * * * ORIGINAL REPORT * * * * * * * *CT HEAD WO CONTRAST,CT MAXILLOFACIAL/MANDIBLE WO CONTRAST,CT CERVICAL SPINE WO CONTRASTHISTORY: Male 23 years Head trauma, minor, GCS>=13, high clinical risk,initial exam Head trauma, headache COMPARISON: NoneTECHNIQUE: Routine CT head, CT maxilla-facial and CT cervical spine wereobtained without IV contrastFINDINGS:CT head and face:The ventricles and cerebral sulci are normal in caliber and configuration.No hydrocephalus, midline shift or pathological extra-axial fluidcollection is present. The basal cisterns are unremarkable. A small midlineretrocerebellar arachnoid cyst is incidentally noted.No acute intracranial hemorrhage or mass effect is present. The centeno-whitematter differentiation is intact. No parenchymal attenuation abnormality ispresent.The calvarium and skull base are unremarkable.The mastoid air cells and paranasal air sinuses are essentially clear withno more than minimal mucoperiosteal thickening seen in the maxillarysinuses.Scattered small radiodense foreign bodies are noted within the faceincluding within the right supraorbital soft tissues abutting the anteriormargin of the right globe, in the right medial canthal region and along theleft aspect of the nose and nasolabial fold.No acute facial fracture is present.The globes appear intact. No retrobulbar foreign body is present.CT cervical spine:Reversal of the normal cervical lordosis.The vertebral bodies are normalin height and in normal alignment. No facet fracture or subluxation ispresent. The craniocervical junction is intact. The prevertebral softtissues are unremarkable.No significant degenerative changes are present.IMPRESSIONNo acute intracranial abnormalityScattered small r adiodense foreign bodies are seen in the right facial softtissues including within the right medial canthal region and abutting thesclera of the right globe. The globes appear intact and no retrobulbarareforeign bodies are identified.No acute facial fractures.No acute cervical fracture or traumatic ma lanorthern [facility] hospitalmentNacogdoc[facility] CenterCT HEAD WO [id number] 23:58:08 No acute intracranial abnormality Scattered small radiodense foreign bodies are seen in the right facial softtissues including within the right medial canthal region and abutting thesclera of the right globe. The globes appear intact and no retrobulbar areforeign bodies are identified. No acute facial fractures. No acute cervical fracture or traumatic malalignment* * * * * * * * ORIGINAL REPORT * * * * * * * *CT HEAD WO CONTRAST,CT MAXILLOFACIAL/MANDIBLE WO CONTRAST,CT CERVICAL SPINE WO CONTRAST HISTORY: Male 23 years Head trauma, minor, GCS>=13, high clinical risk,initial exam Head trauma, headache COMPARISON: None TECHNIQUE: Routine CT head, CT maxilla-facial and CT cervical spine wereobtained without IV contrast FINDINGS: CT head and face: The ventricles and cerebral sulci are normal in caliber and configuration.No hydrocephalus, midline shift or pathological extra-axial fluidcollection is present. The basal cisterns are unremarkable. A small midlineretrocerebellar arachnoid cyst is incidentally noted. No acute intracranial hemorrhage or mass effect is present. The centeno-whitematter diff erentiation is intact. No parenchymal attenuation abnormality ispresent. The calvarium and skull base are unremarkable. The mastoid air cells and paranasal air sinuses are essentially clear withno morethan minimal mucoperiosteal thickening seen in the maxillarysinuses. Scattered small radiodense foreign bodies are noted within the faceincluding within the right supraorbital soft tissues abutting theanteriormargin of the right globe, in the right medial canthal region and along theleft aspect of the nose and nasolabial fold. No acute facial fracture is present. The globes appear intact. No retrobulbar foreign body is present. CT cervical spine: Reversal of the normal cervical lordosis. The vertebral bodies are normalin height and in normal alignment. No facet fracture or subluxation ispresent. The craniocervical junction is intact. The prevertebral softtissues are unremarkable. No significant degenerative changes are present. [facility], Radiant Results Inft User - 12/15/2018 6:58 PM CDT* * * * * * ORIGINAL REPORT * * * * * * * *CT HEAD WO CONTRAST,CT MAXILLOFACIAL/MANDIBLE WO CONTRAST,CT CERVICAL SPINE WO CONTRASTHISTORY: Male 23 years Head trauma, minor, GCS>=13, high clinical risk,initial exam Head trauma, headache COMPARISON: NoneTECHNIQUE: Routine CT head, CT maxilla-facial and CT cervical spine wereobtained without IV contrastFINDINGS:CT head and face:The ventricles and cerebral sulci are normal in caliber and configuration.No hydrocephalus, midline shift or pathological extra-axial fluidcollection is present. The basal cisterns are unremarkable. A small midlineretrocerebellar arachnoid cyst is incidentally noted.No acute intracranial hemorrhage or mass effect is present. The centeno-whitematter differentiation is intact. No parenchymal attenuation abnormality ispresent.The calvarium and skull base are unremarkable.The mastoid air cells and paranasal air sinuses are essentially clear withno more than minimal mucoperiosteal thickening seen in the maxillarysinuses.Scattered small radiodense foreign bodies are noted within the faceincluding within the right supraorbital soft tissues abutting the anteriormargin of the right globe, in the right medial canthal region and along theleft aspect of the nose and nasolabial fold.No acute facial fracture is present.The globes appear intact. No retrobulbar foreign body is present.CT cervical spine:Reversal of the normal cervical lordosis.The vertebral bodies are normalin height and in normal alignment. No facet fracture or subluxation ispresent. The craniocervical junction is intact. The prevertebral softtissues are unremarkable.No significant degenerative changes are present.IMPRESSIONNo acute intracranial abnormalityScattered small r adiodense foreign bodies are seen in the right facial softtissues including within the right medial canthal region and abutting thesclera of the right globe. The globes appear intact and no retrobulbarareforeign bodies are identified.No acute facial fractures.No acute cervical fracture or traumatic ma larowangnmentUnCHI St[facility] CenterCT CERV[facility] SP[facility] WO CONTRAST 2018-12-15 23:58:08 No acute intracranial abnormality Scattered small radiodense foreign bodies are seen in the right facial softtissues including within the right medial canthal region and abutting thesclera of the right globe. The globes appear intact and no retrobulbar areforeign bodies are identified. No acute facial fractures. No acute cervical fracture or traumatic malalignment* * * * * * * * ORIGINAL REPORT * * * * * * * *CT HEAD WO CONTRAST,CT MAXILLOFACIAL/MANDIBLE WO CONTRAST,CT CERVICAL SPINE WO CONTRAST HISTORY: Male 23 years Head trauma, minor, GCS>=13, high clinical risk,initial exam Head trauma, headache COMPARISON: None TECHNIQUE: Routine CT head, CT maxilla-facial and CT cervical spine wereobtained without IV contrast FINDINGS: CT head and face: The ventricles and cerebral sulci are normal in caliber and configuration.No hydrocephalus, midline shift or pathological extra-axial fluidcollection is present. The basal cisterns are unremarkable. A small midlineretrocerebellar arachnoid cyst is incidentally noted. No acute intracranial hemorrhage or mass effect is present. The centeno-whitematter diff erentiation is intact. No parenchymal attenuation abnormality ispresent. The calvarium and skull base are unremarkable. The mastoid air cells and paranasal air sinuses are essentially clear withno morethan minimal mucoperiosteal thickening seen in the maxillarysinuses. Scattered small radiodense foreign bodies are noted within the faceincluding within the right supraorbital soft tissues abutting theanteriormargin of the right globe, in the right medial canthal region and along theleft aspect of the nose and nasolabial fold. No acute facial fracture is present. The globes appear intact. No retrobulbar foreign body is present. CT cervical spine: Reversal of the normal cervical lordosis. The vertebral bodies are normalin height and in normal alignment. No facet fracture or subluxation ispresent. The craniocervical junction is intact. The prevertebral softtissues are unremarkable. No significant degenerative changes are present. [facility], Radiant Results Inft User - 12/15/2018 6:58 PM CDT* * * * * * ORIGINAL REPORT * * * * * * * *CT HEAD WO CONTRAST,CT MAXILLOFACIAL/MANDIBLE WO CONTRAST,CT CERVICAL SPINE WO CONTRASTHISTORY: Male 23 years Head trauma, minor, GCS>=13, high clinical risk,initial exam Head trauma, headache COMPARISON: NoneTECHNIQUE: Routine CT head, CT maxilla-facial and CT cervical spine wereobtained without IV contrastFINDINGS:CT head and face:The ventricles and cerebral sulci are normal in caliber and configuration.No hydrocephalus, midline shift or pathological extra-axial fluidcollection is present. The basal cisterns are unremarkable. A small midlineretrocerebellar arachnoid cyst is incidentally noted.No acute intracranial hemorrhage or mass effect is present. The centeno-whitematter differentiation is intact. No parenchymal attenuation abnormality ispresent.The calvarium and skull base are unremarkable.The mastoid air cells and paranasal air sinuses are essentially clear withno more than minimal mucoperiosteal thickening seen in the maxillarysinuses.Scattered small radiodense foreign bodies are noted within the faceincluding within the right supraorbital soft tissues abutting the anteriormargin of the right globe, in the right medial canthal region and along theleft aspect of the nose and nasolabial fold.No acute facial fracture is present.The globes appear intact. No retrobulbar foreign body is present.CT cervical spine:Reversal of the normal cervical lordosis.The vertebral bodies are normalin height and in normal alignment. No facet fracture or subluxation ispresent. The craniocervical junction is intact. The prevertebral softtissues are unremarkable.No significant degenerative changes are present.IMPRESSIONNo acute intracranial abnormalityScattered small r adiodense foreign bodies are seen in the right facial softtissues including within the right medial canthal region and abutting thesclera of the right globe. The globes appear intact and no retrobulbarareforeign bodies are identified.No acute facial fractures.No acute cervical fracture or traumatic ma [facility]aliGood [facility]"
[2021-11-01] MEDS ORDERED: TETANUS & DIPHTHERIA TOX,ADULT 0.5 ML VIAL ONE (02:15)
[2021-11-01] MEDS ORDERED: IBUPROFEN 400 MG TAB ONE (02:54)
[2021-11-01] MEDS ORDERED: HYDROCODONE/APAP 10/325 TAB ONE (03:55)
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
[2021-11-01 06:03] VITALS: TEMP 98.2; O2SAT 100
[2021-11-01 06:09] VITALS: BP 128/74
--- NOTE | 2021-11-01 12:32 | RAD REPORT ---
EXAM DESCRIPTION: CT - [id number] - 11/01/2021 6:52 am CLINICAL HISTORY: The patient is 26 years old and is Male; head injury TECHNIQUE: Axial computed tomography images of the head/brain and cervical spine without intravenous contrast. Sagittal and coronal reformatted images were created and reviewed. This CT exam was pe rformed using one or more of the following dose reduction techniques: automated exposure control, a djustment of the mA and/or kV according to patient size, and/or use of iterative reconstruction techn ique. COMPARISON: No relevant prior studies available. FINDINGS: BRAIN: Unremarkable. No hemorrhage. No significant white matter disease. No edema. VENTRICLES: Unremarkable. No ventriculomegaly. SKULL: No acute fracture. SINUSES: Unremarkable as visualized. No acute sinusitis. MASTOID AIR CELLS: Unremarkable as visualized. No mastoid effusion. VERTEBRAE: The vertebral body heights and alignment are maintained. No acute fracture. DISCS/SPINAL CANAL/NEURAL FORAMINA: The intervertebral disc spaces are maintained. No spinal lesa l stenosis. SOFT TISSUES: Right posterior scalp soft tissue swelling is present. Minimal subcutaneous air wit hin the soft tissues of the right posterior scalp is noted. Suggestion of a small sebaceous cyst al diane the right posterior soft tissues of the neck measuring 1.0 cm is noted. LUNG APICES: Unremarkable as visualized. IMPRESSION: 1. No acute intracranial findings. Right posterior scalp soft tissue swelling and subc utaneous air. 2. No fracture or malalignment of the cervical spine. Electronically signed by: Tessa Jeffery MD 11/01/2021 3:12 AM CDT Due to temporary technical issues with the PACS/Fluency reporting system, reports are being signed by the in house radiologists without review as a courtesy to insure prompt reporting. The interpreting radiologist is fully responsible for the content of the report.
--- NOTE | 2021-11-01 12:40 | RAD REPORT ---
EXAM DESCRIPTION: RAD - Shoulder Left 2 View - 11/01/2021 2:20 am CLINICAL HISTORY: PAIN TECHNIQUE: Two views of the left shoulder. COMPARISON: No relevant prior studies available. FINDINGS: Bones/joints: Unremarkable. No acute fracture. No dislocation. Soft tissues: Unremarkable. IMPRESSION: No acute injury. Electronically signed by: Papo Arreaga MD 11/01/2021 3:13 AM CDT Due to temporary technical issues with the PACS/Fluency reporting system, reports are being signed by the in house radiologists without review as a courtesy to insure prompt reporting. The interpreting radiologist is fully responsible for the content of the report.
== END 2021-11-01 03:53 | disposition home or self-care (01) ==
LOC: ER 23:37
DX: S00.03XA Contusion of scalp, initial encounter (principal); S30.810A Abrasion of lower back and pelvis, initial encounter; M25.512 Pain in left shoulder; F17.210 Nicotine dependence, cigarettes, uncomplicated
CPT/HCPCS: 70450; 72125; 90714; 99284

== ENCOUNTER 2022-01-26 14:17 | Emergency (ER) | payer SELFPAY ==
--- OUTSIDE RECORDS SUMMARY | 2022-01-26 14:21 | XMS REPORT | Continuity of Care Document ---
:1995 Author Organization [facility] t Address [address] [place] [address] Care Team Providers Name Role Phone Yehuda Appiah MD Primary Care Physician Jade Liu RN Attending Clinician Kimberly Hill LVN Attending Clinician RAMON JOSEPH Attending Clinician Unavailable Chapin Wheeler DO Attending Clinician Ramon Joseph MD Attending Clinician Doctor Unassigned, [place] Attending Clinician Unavailable Adriane Perez Attending Clinician RAMON JOSEPH Admitting Clinician Unavailable Ramon Joseph MD Admitting Clinician Problems Condition Condition Condition Status Onset Resolution Last Treating Co mments Source Name Details Category Date Date Treatment Clinician Date 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 00:00: [place] of face of face Medical Branch No known No known Disease Unive rs active active ity of problems problems [facility] Allergies, Adverse Reactions, Alerts Allergy Allergy Status Severity Reaction(s) Onset Inactive Treating Comm ents Source Name Type Date Date Clinician NO KNOWN Drug Active Univers ALLERGIE Class ity of S [facility] Social History Social Habit Start Date Stop Date Quantity Comments Source History of tobacco Cigarette Smoker University of use [facility] History [facility] o f Alcohol Frequency [facility] Branch History [facility] o f Alcohol Std Drinks [facility] History [facility] o f Alcohol Binge [facility] Alcohol intake 2021-08-14 2021-08-14 Current drinker Unive rsity of 00:00:00 00:00:00 of alcohol [facility] (finding) Branch Exposure to 2021-07-30 2021-08-09 Not sure [facility] SARS-CoV-2 (event) 00:00:00 14:05:00 [facility] Cigarettes smoked 2021-08-09 2021-08-09 Univers ity of current (pack per 00:00:00 00:00:00 [facility] ) - Reported Branch Cigarette 2021-08-09 2021-08-09 University of pack-years 00:00:00 00:00:00 [facility] Tobacco use and 2021-08-09 2021-08-09 Never used Universit y of exposure 00:00:00 00:00:00 [facility] Alcohol Comment 2021-08-09 2021-08-09 occasional Universit y of 00:00:00 00:00:00 [facility] Sex [birth year] Universit y of 00:00:00 00:00:00 [facility] Smoking Status Start Date Stop Date Source Unknown if [facility] Current every day smoker 2021-08-09 00:00:00 Uni versity of [facility] Medications Ordered Filled Start Stop Current Ordering [...] or Pain (scale 4-6). doxycycline 2022-0 Yes [id number] 100mg Take 1 Univers hyclate 100 5-06 capsule by it y of mg capsule 00:00: mouth [place] 00 every 12 Medical (twelve) Branch hours. acetaminoph 2022-0 Yes 650mg Take 2 Uni vers en 325 mg 5-06 tablets by ity of tablet 00:00: mouth [place] 00 every 6 Medical (six) Branch hours as needed for Pain (scale 1-3) or Pain (scale 4-6). doxycycline 2-0 Yes [id number] 100mg Take 1 Univers hyclate 100 5-06 capsule by it y of mg capsule 00:00: mouth [place] 00 every 12 Medical (twelve) Branch hours. acetaminoph 2022-0 Yes 650mg Take 2 Uni vers en 325 mg 5-06 tablets by ity of tablet 00:00: mouth [place] 00 every 6 Medical (six) Branch hours as needed for Pain (scale 1-3) or Pain (scale 4-6). doxycycline 2-0 Yes [id number] 100mg Take 1 Univers hyclate 100 5-06 capsule by it y of mg capsule 00:00: mouth [place] 00 every 12 Medical (twelve) Branch hours. acetaminoph 2022-0 Yes 650mg Take 2 Uni vers en 325 mg 5-06 tablets by ity of tablet 00:00: mouth [place] 00 every 6 Medical (six) Branch hours as needed for Pain (scale 1-3) or Pain (scale 4-6). doxycycline 2-0 Yes [id number] 100mg Take 1 Univers hyclate 100 5-06 capsule by it y of mg capsule 00:00: mouth [place] 00 every 12 Medical (twelve) Branch hours. acetaminoph 2022-0 Yes 650mg Take 2 Uni vers en 325 mg 5-06 tablets by ity of tablet 00:00: mouth [place] 00 every 6 Medical (six) Branch hours as needed for Pain (scale 1-3) or Pain (scale 4-6). doxycycline 2-0 Yes [id number] 100mg Take 1 Univers hyclate 100 5-06 capsule by it y of mg capsule 00:00: mouth [place] 00 every 12 Medical (twelve) Branch hours. doxycycline 2022-0 2022- No [id number] 100mg Take 1 Univers hyclate 100 08-11- capsule by i ty of mg capsule 00:00: 00:00 mouth [place] 00 :00 every 12 Medical (twelve) Branch hours for 7 days. doxycycline No [id number] 100mg Take 1 Univers hyclate 100 08-11-06 capsule by i ty of mg capsule 00:00: 00:00 mouth [place] 00 :00 every 12 Medical (twelve) Branch hours for 13 days. doxycycline [id number] 100mg Take 1 Univers hyclate 100 08-11-06 capsule by i ty of mg capsule 00:00: 00:00 mouth [place] 00 :00 every 12 Medical (twelve) Branch hours for 14 days. vancomycin 15mg/kg 1,500 mg Univers (VANCOCIN) 08-10 (rounded ity of 1,500 mg in 21:45: 21:44 from [place] NaCl 0.9% 00 :00 1,429.5 mg Medi [...] 40 mg 00 First dose Medical on Mel Branch 08/10/21 at 0900, Until Discontinu ed, Routine acetaminoph Yes 650mg 650 mg, Un luanne en 08-10 Oral, ity of (TYLENOL) 13:01: Q6HPRN, [place] tablet 650 00 Starting Medic al mg on Mel Branch 08/10/21 at 0801, Until Discontinu ed, Routine, Pain (scale 1-3), Pain (scale 4-6) HYDROcodone 2021- No 1{tbl} 1 tablet, Univers -acetaminop 08-10 05-07 Oral, ity of hen (NORCO 13:00: 01:36 Q6HPRN, Jude as 5) 5-325 mg 55 :17 Starting Medi alon tablet 1 on Sat tablet 08/10/21 at 0800, Until Sat08/11/21 at 2036, Routine, Pain (scale 7-10) ampicillin- Yes 3g 3 g, IV Uni vers sulbactam 08-10 Piggyback, ity of (UNASYN) 3 09:45: Q6H ABX, Jude as g in NaCl 00 First dose Medi alon 0.9% (NS) on Sat Branch 100 mL 08/10/21 at MINI-BAG 0445, Until Discontinu ed, Administer over 30 Minutes, 100 mL
Reas on for Anti-Infec tive: Documented Infection< br>Documen naseem Infection Site: Skin / Soft Tissue
Duration of Therapy: 7 days doxycycline No 100mg 100 mg, U nivers hyclate 08-10-06 Oral, ity of (Vibramycin 03:15: 11:47 [place]12HA2, [place] capsule 00 :48 First dose Medi alon 100 mg on Sat08/09/21 at 2215, Until Discontinu ed, DAVID
Re ason for Anti-Infec tive: Documented Infection< br>Documen naseem Infection Site: Skin / Soft Tissue
Duration of Therapy: 7 days FENTanyl PF No 25ug 25 mcg, Un luanne (SUBLIMAZE [...] No 15mg 15 mg, Unive rs (TORADOL) 08-09 Slow IV ity of injection 19:30: 18:39 Push, [place] 15 mg 00 :00 ONCE, 1 Medical dose, On Branch Sat08/09/21 at 1430, DAVID cefTRIAXone 2021- No 1000mg 1,000 mg, Univers (ROCEPHIN) 08-09 IV ity of 1,000 mg in 19:30: 19:07 Piggyback, [place] NaCl 0.9% 00 :00 ONCE, 1 Medical (NS) 50 mL dose, On Branc h MINI-BAG Sat08/09/21 at 1430, Administer over 30 Minutes, 50 mL
R fabian for Anti-Infec tive: Empiric Therapy for Suspected Infection< br>Empiric Therapy Site: Skin / Soft tissue
Duration of therapy: 72 hours dexamethaso No 10mg 10 mg, Uni vers ne sod phos 08-09 Slow IV ity of PF 19:30: 19:30 Push, [place] injection 00 :00 ONCE, 1 Medical 10 mg dose, On Branch Sat08/09/21 at 1430, 1 mL iopamidol 2021- No [id number] 80mL 80 mL, Univers (ISOVUE 08-09 Intravenou ity o f 370-500 mL) 18:47: 18:47 s, ONCE, 1 [place] injection 00 :00 dose, On Medica l 80 mL Sat08/09/21 Branch at 1400, Routine ketorolac 2018- No 30mg 30 mg, Unive rs (TORADOL) 12-16 Slow IV ity of injection 00:15: 00:32 Push, [place] 30 mg 00 :00 ONCE, 1 Medical dose, [facility] Branch 12/15/18 at 1915, Routine
sales team member approving Restricted medication : ADRIANE TOURE acetaminoph 2018- No 1000mg 1,000 mg, Univers en 12-16 Oral, ity of (TYLENOL) 00:15: 00:32 ONCE, 1 [place] tablet 00 :00 dose, Mon Medical 1,000 mg 12/15/18 at Branch 1915, Routine naproxen Yes [id number] 500mg Take 1 Un luanne 500 mg 9-09 tablet by ity of tablet 00:00: mouth [place] 00 every 8 Medical (eight) Branch hours as needed for Pain (scale 4-6). naproxen Yes [id number] 500mg Take 1 Un luanne 500 mg 9- tablet by ity of tablet 00:00: mouth [place] 00 every 8 Medical (eight) Branch hours as needed for Pain (scale 4-6). naproxen 2021- No [id number] 500mg Take 1 U nivers 500 mg - 05-04 tablet by ity of tablet 00:00: 00:00 mouth [place] 00 :00 every 8 Medical (eight) Branch hours as needed for Pain (scale 4-6). cyclobenzap 2019- No [id number] 5mg Take 1 Univers rine 5 mg 12-15-15 tablet by ity of tablet 00:00: 04:59 mouth 3 [place] 00 :00 (three) Medical times Branch daily for 5 days. sulfamethox 2018- Yes [id number] 1{tbl} Take 1 Univers azole-trime 6-22 tablet by ity of thoprim 00:00: mouth [place] 800-160 mg 00 every 12 Medic al per tablet (twelve) Branc h hours. sulfamethox 2018- Yes [id number] 1{tbl} Take 1 Univers azole-trime 6-22 tablet by ity of thoprim 00:00: mouth [place] 800-160 mg 00 every 12 Medic al per tablet (twelve) Branc h hours. sulfamethox 2021- No [id number] 1{tbl} Take 1 Univers azole-trime 6-22 05-04 tablet by it y of thoprim 00:00: 00:00 mouth [place] 800-160 mg 00 :00 every 12 Medic al per tablet (twelve) Branc h hours. Vital Signs Vital Name Observation Time Observation Value Comments Source Systolic blood 2021-08-11 20:57:00 141 mm[Hg] Univer sity of pressure [facility] Diastolic blood 2021-08-11 20:57:00 75 [facility]Hg[facility] 2021-08-11 20:57:00 71 /min Universi ty of [facility] Body temperature 2021-08-11 20:57:00 36.5 Rosana [facility] 2021-08-11 20:57:00 18 /min [facility] Oxygen saturation in 2021-08-11 20:57:00 99 /min University of Arterial blood by [facility] Pulse oximetry Branch Body height 2021-08-10 13:59:00 190.5 cm Universi ty of [facility] Body weight 2021-08-10 13:59:00 95.255 kg Universi ty of [facility] BMI 2021-08-10 13:59:00 26.25 kg/m2 Universi ty [facility] [place] [facility] Body temperature 2018-12-16 00:40:00 37.11 Rosana [facility] Respiratory rate 2018-12-15 23:29:28 16 /min [facility] Body height 2018-12-15 23:04:00 188 cm Universi ty [facility] Body weight 2018-12-15 23:04:00 86.183 kg Universi ty [facility] [place] [facility] BMI 2018-12-15 23:04:00 24.39 kg/m2 Universi ty [facility] [place] [facility] Oxygen saturation in 2018-12-15 23:04:00 97 /min University of Arterial blood by [facility] Pulse oximetry Branch Systolic blood 2018-12-15 23:04:00 140 mm[Hg] [facility] Diastolic blood 2018-12-15 23:04:00 67 mm[Hg] [facility] Heart rate 2018-12-15 23:04:00 78 /min [facility] [place] [facility] Procedures Procedure Date / Time Performed Performing Clinician Sourc e MAGNESIUM 2021-08-11 10:45:00 Juan Ann [place] o f [facility] BASIC METABOLIC PANEL 2021-08-11 10:45:00 Juan Ann [facility] (NA, K, CL, CO2, Medical Branch GLUCOSE, BUN, CREATININE, CA) CBC WITHOUT DIFF 2021-08-11 10:45:00 Juan Ann [facility] BLOOD CULTURE SCREEN 2021-08-10 06:23:00 Kimmie Cox [facility] MRSA / MSSA SCREEN BY 2021-08-10 06:23:00 [place] [facility] PCR, [facility] BLOOD CULTURE SCREEN 2021-08-10 06:22:00 Brooke [facility] TISSUE 2021-08-10 02:33:00 [facility] CULTURE(AEROBIC/ANAER Medical Br anch OBIC) CT ORBITS W CONTRAST 2021-08-09 18:56:48 Chapin Wheeler [facility] COMP. METABOLIC PANEL 2021-08-09 18:27:00 Brohard [facility] ([id number]) [facility] CBC WITH DIFF 2021-08-09 18:27:[address] [facility] o f [facility] NOTICE OF PRIVACY 2021-08-09 17:14:37 Doctor Unassigned, No [facility] PRACTICES [facility] CONSENT/REFUSAL FOR 2021-08-09 17:13:35 Doctor Unassigned, No [facility] TREATMENT HOSPITAL ADMISSION 2021-08-09 05:01:00 Doctor Unassigned, No Uni versity of [place] [facility] CT CERVICAL SPINE WO 2018-12-15 23:43:50 Adriane Toure Uni versity of [facility] CT HEAD WO CONTRAST 2018-12-15 23:43:50 Adriane Toure [facility] 2018-12-15 23:43:29 Adriane Toure [facility] [place] MAXILLOFACIAL/MANDIBL Medical Br anch E WO CONTRAST Encounters Start End Encounter Admission Attending Care Care Encounter Source Date/Time Date/Time Type Type Clinicians Facility Department ID 2021-09-18 2021-09-18 Patient Jade Liu JUAQUIN [id number] Univers 00:00:00 00:00:00 Outreach E ESCOBEDO [id number] i ty of [place] [id number] [place] [address] Branch 2021-08-14 2021-08-14 Transition JUAQUIN [place] [id number] Univers 00:00:00 00:00:00 of Care Kimberly ESCOBED[place] 350.1.13.10 [place] [phone] [facility] [address] 2021-08-14 2021-08-14 Patient Jade Liu [id number] Univers 00:00:00 00:00:00 Outreach E [place] 350.1.13.10 [place] [id number] [facility] 403 Branch 2021-08-14 2021-08-14 Transition JUAQUIN Hill [id number] Univers 00:00:00 00:00:00 of Care Kimberly ESCOBED[place] 350.1.13.10 [place] [id number] [facility] [address] 2021-08-09 2021-08-11 Inpatient X [facility] [id number] Univers 12:29:00 16:24:00 RAMON loo of [facility] 2021-08-09 2021-08-11 Hospital Chapin Wheeler [id number] Univers 12:29:00 16:24:00 Encounter Ramon Joseph 350.1. 13.10 ity of HOSPITAL 4.2.7.2.686 [place] [id number] [facility] 094 Branch 2021-08-09 2021-08-09 Orders Doctor EVANGELISTA [id number] Univers 00:00:00 00:00:00 Only Unassigned, CHELLY 350.1.13.10 ity of [place] H[facility] 4.2.7.2.686 Jude as [phone] [facility] 009 Branch 2018-12-15 2018-12-15 [facility] 1.2.840.114 [id number] Univers 17:57:48 19:54:00 Adriane Ordonez 350.1.13.10 [place] [id number] [facility] 084 Branch Results Test Description Test Time Test Comments Results Result Comments Source BASIC METABOLIC PANEL (NA, K, CL, CO2, GLUCOSE, BUN, 2021-08 11:42:36 CREATININE, CA) Test Item Value Reference Range Interpretation Comme nts NA (test code = 3795221368) 140 mmol/L 135-145 K (test code = 8574703855) 3.5 mmol/L 3.5-5.0 CL (test code = 5042111629) 108 mmol/L 98-108 CO2 TOTAL (test code = 4313480885) 26 mmol/L 23-31 AGAP (test code = 0634201436) 2-16 BUN (test code = 8328585276) 12 mg/dL 7-23 GLUCOSE (test code = 3893226625) 92 mg/dL 70-110 CREATININE (test code = 0.80 mg/dL 0.60-1.25 2737272811) CALCIUM (test code = 9578896174) 8.0 mg/dL 8.6-10.6 L eGFR (test code = 5746983672) mL/min/1.73m2 GENE (test code = GENE) Association [...] tests). Lab Interpretation (test code = Abnormal 94322-2) [facility] 11[facility]36 Test Item Value Reference Range Interpretation Comments MAGNESIUM (test code = 3061761036) 1.6 mg/dL 1.7-2.4 L Lab Interpretation (test code = Abnormal 65511-1) [facility] [id number] 11:18:07 Test Item Value Reference Range Interpretation Comments WBC (test code = 6690-2) See_Comment [A utomated message] The system [email or web address] generated this result transmit naseem reference range : 4.20 - 10.70 10*3/?L. The reference range was not used to interpret this result as normal/abnormal . RBC (test code = 789-8) See_Comment [Au tomated message] The system [email or web address] generated this result transmit naseem reference range [...] 777-3) See_Comment [Au tomated message] The system [email or web address] generated this result transmit naseem reference range : 150 - 328 10*3/?L. The reference range was not used to interpret this result as normal/abnormal . MPV (test code = 9.2 fL 9.8-13.0 L 83141-6) RDW-CV (test code = 12.3 % 12.1-15.4 788-0) RDW-SD (test code = 42.7 fL 38.5-51.6 34412-7) NRBC x10^3 (test code = <0.01 See_Comment [Au tomated message] 7030152247) The system [employer] h generated this result transmit naseem reference range : 10*3/?L. The reference range was not used to interpret this result as normal/abnormal . NRBC/100 WBC (test code See_Comment [Au tomated message] = 8638243738) The system [employer] generated this result transmit naseem reference range : 0.0 - 10.0 /100 WBC s. The reference r zeinab was not used to interpret this result as normal/abnormal . IPF % (test code = 1726494858) Lab Interpretation (test Abnormal code = 32072-1) [facility]. METABOLIC PANEL (00469)2021-08-09 18:54:10 Test Item Value Reference Range Interpretation Comments NA (test code = 139 mmol/L 135-145 9537296743) K (test code = 4.2 mmol/L 3.5-5.0 0774813216) CL (test code = 104 mmol/L 98-108 7370090545) CO2 TOTAL (test code 26 mmol/L 23-31 = 9957543506) AGAP (test code = 2-16 0851236484) BUN (test code = 12 mg/dL 7-23 7338312584) GLUCOSE (test code = 75 mg/dL 70-110 8240881445) CREATININE (test code 0.81 mg/dL 0.60-1.25 = 7853398346) TOTAL BILI (test code 0.7 mg/dL 0.1-1.1 = 7923965397) CALCIUM (test code = 9.3 mg/dL 8.6-10.6 8869156071) T PROTEIN (test code 7.2 g/dL 6.3-8.2 = 0478502091) ALBUMIN (test code = 4.4 g/dL 3.5-5.0 5130166970) ALK PHOS (test code = 34 U/L 34-122 2142621144) ALTv (test code = 15 U/L 5-50 1742-6) AST(SGOT) (test code 38 U/L 13-40 = 0739082412) eGFR (test code = mL/min/1.73m2 2391125733) GENE (test code = GENE) Association of [...] or urine or abnormalities in imaging tests). [facility] WITH [id number] 18:42:29 Test Item Value Reference Range Interpretation Comments WBC (test code = See_Comment [Automated 7826-2) message] The sy stem which generated this result transmitted reference range : 4.20 - 10.70 10*3/?L. The reference range was not used to interpret this result as normal/abnormal . RBC (test code = See_Comment [Automated 392-9) message] The sy stem which generated this [...] RDW-SD (test code = 41.5 fL 38.5-51.6 32871-1) RDW-CV (test code = 12.0 % 12.1-15.4 L 788-0) PLT (test code = See_Comment H [Automated 777-3) message] The sy stem which generated this result transmitted reference range : 150 - 328 10*3/ ?L. The reference r zeinab was not used to interpret this result as normal/abnormal . MPV (test code = 8.6 fL 9.8-13.0 L 49311-0) NRBC/100 WBC (test See_Comment [Automat ed code = 4855805034) message] The system which generated this result transmitted reference range : 0.0 - 10.0 /100 WBCs. The refer ence range was not u sed to interpret th is result as normal/abnormal . NRBC x10^3 (test code <0.01 See_Comment [Auto mated = 7289132823) message] The s ystem which generated this result transmitted reference range : 10*3/?L. The reference range was not used to interpret this result as normal/abnormal . GRAN MAT (NEUT) % 59.9 % (test code = 770-8) IMM GRAN % (test code 0.50 % = 1257584407) LYMPH % (test code = 22.3 % 736-9) MONO % (test code = 13.4 % 5905-5) EOS % (test code = 3.5 % 713-8) BASO % (test code = 0.4 % 706-2) GRAN MAT x10^3(ANC) 4.83 10*3/uL 1.99-6.95 (test code = 5965312555) IMM GRAN x10^3 (test 0.04 10*3/uL 0.00-0.06 code = 1072372871) LYMPH x10^3 (test code 1.80 10*3/uL 1.09-3.23 = 731-0) MONO x10^3 (test code 1.08 10*3/uL 0.36-1.02 H = 742-7) EOS x10^3 (test code = 0.28 10*3/uL 0.06-0.53 711-2) BASO x10^3 (test code 0.03 10*3/uL 0.01-0.09 = 704-7) Lab Interpretation Abnormal (test code = 66571-0) [facility]ANDIBLE WO CONTRAST 2018-12-15 23:58:08 No acute [...] or mass effect is present. The centeno-whitematter diffe rentiation is intact. No parenchymal attenuation abnormality ispresent. The calvarium and skull baseare unremarkable. The mastoid air cells and paranasal air sinuses are essentially clear withno more than minimal mucoperiosteal thickening seen in the maxillarysinuses. Scattered small radiodense foreign bodies are noted within the faceincluding within the right supraorbital soft tissues abutting the anteriormargin of the right globe, in the right medial canthal region and along theleft aspect of thenose and nasolabial fold. No acute facial fracture [...] years Head trauma, minor, GCS>=13, high clinical risk,initialexam Head trauma, headache COMPARISON: NoneTECHNIQUE: Routine CT head, CT maxilla-facial and CT cervical spine wereobtained without IV contrastFINDINGS:CT head and face:The ventricles and cerebral sulci are normal in caliber and configuration.No hydrocephalus, midline shift or pathological extra-axialfluidcollection is present. The basal cisterns are unremarkable. [...] the faceincluding within the right supraorbital soft tissuesabutting the anteriormargin of the right globe, in the right medial canthal region and along theleftaspect of the nose and nasolabial fold.No acute facial fracture is present.The globes appear intact.No retrobulbar foreign body is present.CT cervical spine:Reversal of the normal cervical lordosis. The vertebral bodies are normalin height and in normal alignment. No facet fracture or subluxation ispresent. The craniocervical junction is intact. The prevertebral softtissues are unremarkable.No significant degenerative changes are present.IMPRESSIONNo acute intracranial abnormalityScattered small radiodense foreign bodies are seen in the right facial softtissues including within the right medial canthal region and abutting thesclera of the right globe. The globes appear intact and no retrobulbar areforeign bodies are identified.No acute facial fractures.No acute cervical fracture or traumatic malalignmentMethodist Hospital NortheastCT HEAD WO [id number] 23:58:08 No acute intracranial abnormality Scattered small [...] or mass effect is present. The centeno-whitematter diffe rentiation is intact. No parenchymal attenuation abnormality ispresent. The calvarium and skull baseare unremarkable. The mastoid air cells and paranasal air sinuses are essentially clear withno more than minimal mucoperiosteal thickening seen in the maxillarysinuses. Scattered small radiodense foreign bodies are noted within the faceincluding within the right supraorbital soft tissues abutting the anteriormargin of the right globe, in the right medial canthal region and along theleft aspect of thenose and nasolabial fold. No acute facial fracture [...] years Head trauma, minor, GCS>=13, high clinical risk,initialexam Head trauma, headache COMPARISON: NoneTECHNIQUE: Routine CT head, CT maxilla-facial and CT cervical spine wereobtained without IV contrastFINDINGS:CT head and face:The ventricles and cerebral sulci are normal in caliber and configuration.No hydrocephalus, midline shift or pathological extra-axialfluidcollection is present. The basal cisterns are unremarkable. [...] the faceincluding within the right supraorbital soft tissuesabutting the anteriormargin of the right globe, in the right medial canthal region and along theleftaspect of the nose and nasolabial fold.No acute facial fracture is present.The globes appear intact.No retrobulbar foreign body is present.CT cervical spine:Reversal of the normal cervical lordosis. The vertebral bodies are normalin height and in normal alignment. No facet fracture or subluxation ispresent. The craniocervical junction is intact. The prevertebral softtissues are unremarkable.No significant degenerative changes are present.IMPRESSIONNo acute intracranial abnormalityScattered small radiodense foreign bodies are seen in the right facial softtissues including within the right medial canthal region and abutting thesclera of the right globe. The globes appear intact and no retrobulbar areforeign bodies are identified.No acute facial fractures.No acute cervical fracture or traumatic malalignmentUnColumbus Community HospitalCT CERVICAL SPINE WO CONTRAST 2018-12-15 23:58:08 No [...] or mass effect is present. The centeno-whitematter diffe rentiation is intact. No parenchymal attenuation abnormality ispresent. The calvarium and skull baseare unremarkable. The mastoid air cells and paranasal air sinuses are essentially clear withno more than minimal mucoperiosteal thickening seen in the maxillarysinuses. Scattered small radiodense foreign bodies are noted within the faceincluding within the right supraorbital soft tissues abutting the anteriormargin of the right globe, in the right medial canthal region and along theleft aspect of thenose and nasolabial fold. No acute facial fracture is present. The globes appear intact. No retrobulbar foreign body is present. CT cervical spine: Reversal of the normal cervical lordosis. The vertebral bodies are normalin height and in normal alignment. No facet fracture or subluxation ispresent. The craniocervical junction is intact. The prevertebral softtissues are unremarkable. No significant degenerative changes are present. Vamb, Radiant Results Inft User - 12/15/2018 6:58 PM CDT* * * * * * ORIGINAL REPORT * * * * * * * *CT HEAD WO CONTRAST,CT MAXILLOFACIAL/MANDIBLE WO CONTRAST,CT CERVICAL SPINE WO CONTRASTHISTORY: Male 23 years Head trauma, minor, GCS>=13, high clinical risk,initialexam Head trauma, headache COMPARISON: NoneTECHNIQUE: Routine CT head, CT maxilla-facial and CT cervical spine wereobtained without IV contrastFINDINGS:CT head and face:The ventricles and cerebral sulci are normal in caliber and configuration.No hydrocephalus, midline shift or pathological extra-axialfluidcollection is present. The basal cisterns are unremarkable. [...] the faceincluding within the right supraorbital soft tissuesabutting the anteriormargin of the right globe, in the right medial canthal region and along theleftaspect of the nose and nasolabial fold.No acute facial fracture is present.The globes appear intact.No retrobulbar foreign body is present.CT cervical spine:Reversal of the normal cervical lordosis. The vertebral bodies are normalin height and in normal alignment. No facet fracture or subluxation ispresent. The craniocervical junction is intact. The prevertebral softtissues are unremarkable.No significant degenerative changes are present.IMPRESSIONNo acute intracranial abnormalityScattered small radiodense foreign bodies are seen in the right facial softtissues including within the right medial canthal region and abutting thesclera of the right globe. The globes appear intact and no retrobulbar areforeign bodies are identified.No acute facial fractures.No acute cervical fracture or traumatic malalignmentUnColumbus Community Hospital"
[2022-01-26] MEDS ORDERED: BUPIVACAINE 0.5% PF 10 ML VIAL ONE (16:00)
[2022-01-26] MEDS ORDERED: LIDOCAINE 1% MPF 30 ML VIAL ONE (16:01)
[2022-01-26] MEDS ORDERED: ONDANSETRON 4 MG/2 ML VIAL ONE (16:27)
[2022-01-26] MEDS ORDERED: MORPHINE 4 MG/ML SYR ONE (16:27)
[2022-01-26] MEDS ORDERED: LORazepam 2 MG/ML VIAL ONE (16:56)
--- NOTE | 2022-01-26 17:20 | EDPHYS ---
Physician Documentation [facility] Name: Macho Park Age: 26 yrs Sex: Male : 1995 Arrival Date: 01/26/2022 Time: 14:24 Bed 6 Private MD: ED Physician Juno Terry HPI: 01/26 15:05 This 26 yrs old Male presents to ER via Ambulatory with complaints of Cyst. jmm 15:05 the patient presents with a swollen area of the buttocks. Onset: The symptoms/episode jmm began/occurred gradually, 2 day(s) ago. Possible cause(s): unknown. This is a 26-year-old male with no known chronic medical conditions presents emerged department with complaints of swelling to his buttock. Symptoms began approximately 2 days ago. Patient denies fever. Patient has had similar episodes in the past but not in the same region.. Historical: - Allergies: 14:42 No Known Allergies; kb3 - Home Meds: 14:42 None [Active]; kb3 - PMHx: 14:42 None; kb3 - PSHx: 14:42 None; kb3 - Immunization history:: Adult Immunizations up to date, Client reports receiving the 2nd dose of the Covid vaccine, Last tetanus immunization: up to date. - Social history:: Smoking status: Patient reports the use of cigarette tobacco products. ROS: 15:05 Constitutional: Negative for fever, chills, and weight loss, Cardiovascular: Negative jmm for chest pain, palpitations, and edema, Respiratory: Negative for shortness of breath, cough, wheezing, and pleuritic chest pain. 15:05 Skin: Positive for erythema, swelling. 15:05 All other systems are negative. Exam: 15:05 Constitutional: This is a well developed, well nourished patient who is awake, alert, jmm and in no acute distress. Head/Face: atraumatic. Eyes: EOMI, no conjunctival erythema appreciated ENT: Moist Mucus Membranes Neck: Trachea midline, Supple Chest/axilla: Normal chest wall appearance and motion. Cardiovascular: Regular rate and rhythm. No edema appreciated Respiratory: Normal respirations, no respiratory distress appreciated Abdomen/GI: Non distended Back: Normal ROM 15:05 MS/ Extremity: Moves all extremities, no obvious deformities appreciated, no edema noted to the lower extremities Neuro: Awake and alert Psych: Behavior is normal, Mood is normal, Patient is cooperative and pleasant 15:05 Skin: Induration and swelling noted to the gluteal cleft. Vital Signs: 14:41 BP 128 / 77; Pulse 91; Resp 20; Temp 97.6; Pulse Ox 100% ; Weight 108.86 kg; Height 6 kb3 ft. 4 in. (193.04 cm); Pain 10/10; 15:48 BP 104 / 82; Pulse 82; Resp 16; Pulse Ox 96% on R/A; tp1 14:41 Body Mass Index 29.21 (108.86 kg, 193.04 cm) kb3 Procedures: 17:18 I \T\ D: Incision and drainage was performed for an abscess of the pilonidal cyst Prepped [facility] with Betadine, Anesthetized with 5 ml's 1% Lidocaine. Incised with #11 blade. Drained moderate amount purulent fluid. Packed with iodoform gauze, the patient tolerated the procedure well. MDM: 15:05 Patient medically screened. [facility] 17:19 Data reviewed: vital signs, nurses notes. Counseling: I had a detailed discussion with [facility] the patient and/or guardian regarding: the historical points, exam findings, and any diagnostic results supporting the discharge/admit diagnosis, the need for outpatient follow up, to return to the emergency department if symptoms worsen or persist or if there are any questions or concerns that arise at home. 01/26 16:12 Order name: Saline Lock; Complete Time: 16:32 [facility] Administered Medications: 16:00 Drug: Marcaine (bupivacaine) (0.5 %) 10 ml {Note: administered by Mickail.} Volume: 10 tp1 ml; Route: Infiltration; 16:00 Drug: Lidocaine (1 %) 20 ml {Note: Administered by Mickail .} Volume: 20 ml; Route: tp1 Infiltration; 16:11 CANCELLED (Duplicate Order): Ativan (LORazepam) 1 mg PO once [facility] 16:28 Drug: Zofran (Ondansetron) 4 mg Route: IVP; Site: left antecubital; tp1 16:30 Drug: morphine 4 mg Route: IVP; Infused Over: 4 mins; Site: left antecubital; tp1 16:57 Drug: Ativan (LORazepam) 1 mg {Note: rass 0.} Route: IVP; Site: left antecubital; ll1 Disposition Summary: 01/26/22 17:20 Discharge Ordered Location: Home [facility] Condition: Stable jm Diagnosis - Pilonidal cyst and sinus with abscess jm Followup: [facility] - With: Reginald Winter MD - When: 2 - 3 days - Reason: Recheck today's complaints, Continuance of care, Re-evaluation by your physician Discharge Instructions: - Discharge Summary Sheet [facility] - Pilonidal Cyst jmm - Pilonidal Cyst Drainage, Care After jmm Forms: - Medication Reconciliation Form [facility] - Thank You Letter [facility] - Antibiotic Education [facility] - Prescription Opioid Use [facility] - Work release form iw Prescriptions: - Doxycycline Hyclate 100 mg Oral Tablet - take 1 tablet by ORAL route every 12 hours; 20 tablet; Refills: 0, Product jm Selection Permitted - Bactrim DS 800-160 mg Oral Tablet - take 1 tablet by ORAL route every 12 hours for 10 days; 20 tablet; Refills: 0, jm Product Selection Permitted Addendum: 01/30/2022 04:09 Co-signature as Attending Physician, Juno Terry MD I agree with the assessment and c delarosa plan of care. Signatures: Juno Terry MD MD cha Mickail, Joel, PA PA jmm Lewis, Lynsay RN RN ll1 Kinza Sneed RN RN tp1 Tarah Eid RN RN kb3 Corrections: (The following items were deleted from the chart) 01/26 16:11 16:10 Ativan (LORazepam) 1 mg PO once ordered. tosin leahy
--- NOTE | 2022-01-26 17:20 | ER ---
Nurse's Notes [facility] Name: Macho Park Age: 26 yrs Sex: Male : 1995 Arrival Date: 01/26/2022 Time: 14:24 Bed 6 Private MD: Diagnosis: Pilonidal cyst and sinus with abscess Presentation: 01/26 14:41 Chief complaint: Patient states: Pt reports abscess to top of buttocks x2 days. kb3 Coronavirus screen: Vaccine status: Patient reports receiving the 2nd dose of the covid vaccine. Client denies travel out of the [place] in the last 14 days. Ebola Screen: Patient negative for fever greater than or equal to 101.5 degrees Fahrenheit, and additional compatible Ebola Virus Disease symptoms Patient denies exposure to infectious person. Patient denies travel to an Ebola-affected area in the 21 days before illness onset. No symptoms or risks identified at this time. Initial Sepsis Screen: Does the patient meet any 2 criteria? No. Patient's initial sepsis screen is negative. Does the patient have a suspected source of infection? No. Patient's initial sepsis screen is negative. Risk Assessment: Do you want to hurt yourself or someone else? Patient reports no desire to harm self or others. Onset of symptoms was January 24, 2022. 14:41 Method Of Arrival: Ambulatory [facility] 14:41 Acuity: MELANIE 3 kb3 Triage Assessment: 14:42 General: Appears in no apparent distress. uncomfortable, Behavior is calm, cooperative. kb3 Pain: Complains of pain in coccyx Pain does not radiate. Pain currently is 10 out of 10 on a pain scale. Quality of pain is described as burning, sharp, stabbing. Historical: - Allergies: 14:42 No Known Allergies; kb3 - Home Meds: 14:42 None [Active]; kb3 - PMHx: 14:42 None; kb3 - PSHx: 14:42 None; kb3 - Immunization history:: Adult Immunizations up to date, Client reports receiving the 2nd dose of the Covid vaccine, Last tetanus immunization: up to date. - Social history:: Smoking status: Patient reports the use of cigarette tobacco products. Screenin:49 Abuse screen: Denies threats or abuse. Denies injuries from another. Nutritional tp1 screening: No deficits noted. Tuberculosis screening: No symptoms or risk factors identified. Fall Risk None identified. Assessment: 15:45 General: Appears in no apparent distress. uncomfortable, Behavior is calm, cooperative. tp1 Pain: Complains of pain in gluteal cleft Pain does not radiate. Pain currently is 10 out of 10 on a pain scale. Quality of pain is described as sharp, Pain began 2-3 days ago. Is continuous. Neuro: Level of Consciousness is awake, alert, obeys commands, Oriented to person, place, time, situation. Cardiovascular: Patient's skin is warm and dry. Respiratory: Airway is patent Respiratory effort is even, unlabored. GI: Abdomen is flat, non-distended. : No signs and/or symptoms were reported regarding the genitourinary system. EENT: No signs and/or symptoms were reported regarding the EENT system. Derm: Skin is pink, warm \T\ dry. Derm: Cyst noted to left gluteal cleft, no drainage noted. Musculoskeletal: Circulation, motion, and sensation intact. Musculoskeletal: Vital Signs: 14:41 BP 128 / 77; Pulse 91; Resp 20; Temp 97.6; Pulse Ox 100% ; Weight 108.86 kg; Height 6 kb3 ft. 4 in. (193.04 cm); Pain 10/10; 15:48 BP 104 / 82; Pulse 82; Resp 16; Pulse Ox 96% on R/A; tp1 14:41 Body Mass Index 29.21 (108.86 kg, 193.04 cm) kb3 ED Course: 14:24 Patient arrived in ED. am2 14:42 Triage completed. kb3 14:42 Arm band placed on right wrist. kb3 15:04 Sincere Magaña PA is PHCP. [facility] 15:04 Juno Terry MD is Attending Physician. jmm 15:14 Mary Thayer, TIFFANY is Primary Nurse. hb 16:24 Inserted saline lock: 20 gauge in left antecubital area, using aseptic technique. tp1 17:10 Assist provider with I \T\ D: of an abscess on coccyx area Performed by Sincere GOLD vg1 Wound packed. iodoform gauze, Dressing with 4X4s, tape Patient tolerated poorly. 17:19 Reginald Winter MD is Referral Physician. [facility] 17:30 Patient has correct armband on for positive identification. vg1 17:30 IV discontinued, intact, bleeding controlled, No redness/swelling at site. Pressure vg1 dressing applied. Administered Medications: 16:00 Drug: Marcaine (bupivacaine) (0.5 %) 10 ml {Note: administered by Mickail.} Volume: 10 tp1 ml; Route: Infiltration; 16:00 Drug: Lidocaine (1 %) 20 ml {Note: Administered by Mickail .} Volume: 20 ml; Route: tp1 Infiltration; 16:11 CANCELLED (Duplicate Order): Ativan (LORazepam) 1 mg PO once [facility] 16:28 Drug: Zofran (Ondansetron) 4 mg Route: IVP; Site: left antecubital; tp1 16:30 Drug: morphine 4 mg Route: IVP; Infused Over: 4 mins; Site: left antecubital; tp1 16:57 Drug: Ativan (LORazepam) 1 mg {Note: rass 0.} Route: IVP; Site: left antecubital; ll1 Medication: 17:30 VIS not applicable for this client. vg1 Outcome: 17:20 Discharge ordered by . [facility] 17:30 Discharged to home ambulatory. vg1 17:30 Condition: good 17:30 Discharge instructions given to patient, Instructed on discharge instructions, follow up and referral plans. medication usage, wound care, Demonstrated understanding of instructions, follow-up care, medications, wound care, Prescriptions given X 2. 17:31 Patient left the ED. vg1 Signatures: Sincere Magaña PA PA [facility] Mary Thayer RN RN hb Moreno, Amanda am2 Ginger Franco RN RN vg1 Irina Urias RN RN ll1 Kinza Sneed RN RN tp1 Tarah Eid, TIFFANY RN kb3 Corrections: (The following items were deleted from the chart) 16:58 16:57 Ativan (LORazepam) 1 mg IVP in left antecubital ll1 ll1
[2022-01-26 17:35] VITALS: TEMP 97.6
[2022-01-26 17:36] VITALS: BP 104/82; O2SAT 96
== END 2022-01-26 17:31 | disposition home or self-care (01) ==
LOC: ER 14:17
PROC: 0H98XZZ Drainage of Buttock Skin, External Approach (ICD-10-PCS; principal; 2022-01-26)
DX: L05.01 Pilonidal cyst with abscess (principal); F17.210 Nicotine dependence, cigarettes, uncomplicated
CPT/HCPCS: 96374; 96375; 99284; J2405